=== PATIENT | male | born 1955 | race Caucasian/White ===

== ENCOUNTER 2017-06-25 03:51 | Inpatient (IN) | payer OTHER ==
[~2017-06-25] VITALS: Ht 185.4 cm; Wt 129.8 kg
--- NOTE | ~2017-06-25 | CON ---
[place], [place] REPORT OF CONSULTATION NAME: RIVERA BAPTISTE UNIT #: [id number] ROOM: 403 DOCTOR: MARTIR CELESTE BIRTHDATE: [birth year] DOS: 06/30/2017 HISTORY OF PRESENT ILLNESS: The patient is a 61-year-old male, currently on the 4th floor at [facility], who was brought in on June 25 by EMS after suffering a fall at home due to lower extremity weakness. The patient reported that he has been developing the weakness over 3-4 weeks and symptoms have gotten worse. I met with patient to discuss possible depression. The patient admits to feeling depressed over the last several weeks. He states that the holidays are hard for him as all of his family has . He states he has no friends or family to spend the holidays with and this is very hard for him. He denies any suicidal ideations. He states that he prefers to go to rehab upon discharge so that he is not alone for the holidays. Case management is working to find a place for him. He is unsure of what facility he will go to following his stay at [facility]. PAST MEDICAL HISTORY: Chronic kidney disease, essential hypertension, gout, hyperlipidemia, major depression, obesity, pneumothorax, suicidal ideation, type 2 diabetes, insulin-dependent, vitamin D deficiency. Again, I met with the patient today at length. He stated that he is not suicidal at this time. He is lonely and states that he has had worsening symptoms of depression and feels that going to rehab will help to alleviate those as he will not be alone. He has not been to rehab before, but has visited friends there in the distant past. 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 RECOMMENDATIONS: As the patient is not suicidal, he is agreeable to follow up on an outpatient basis for counseling for his depression and to discuss. He is also willing to discuss coping techniques and other strategies for dealing with his depression when symptoms worsen. He is looking forward to going to rehabilitation. I am in agreement with this plan. Thank you for the consultation. KRISH Hamm CM:CONSTR:REPORT OF CONSULTATION 1127 06/30/17 1710 interface
--- NOTE | ~2017-06-25 | PR ---
[place], [place] PROGRESS NOTE NAME: RIVERA BAPTISTE UNIT #: [id number] ROOM: 403 DOCTOR: KAMERON TAMEZ MD BIRTHDATE: [birth year] DOS: 06/28/2017 SUBJECTIVE: The patient was seen and examined. He is awake and alert, lying flat in the ICU. He denied shortness of breath. He states he is feeling better. Denies fevers or chills. He is urinating more. PHYSICAL EXAMINATION: VITAL SIGNS: Temperature 97.7, pulse 65, respiratory rate 15, blood pressure 140/63. HEENT AND NECK: Shows no JVD. LUNGS: Diminished breath sounds. No wheeze. HEART: Normal S1, S2. No rub, thrill or gallop. ABDOMEN: Soft, nontender. There is no organomegaly. EXTREMITIES: Had trace edema. NEUROLOGIC: Showed no focal findings. LABORATORY DATA: Hemoglobin 10.6, white count of 18.8, platelets of 209. Sodium 137, potassium 4.3, BUN 51, creatinine 2.0, glucose 348, calcium 7.3, albumin of 2.5. IMPRESSION AND PLAN: 1. Acute kidney injury, likely due to prerenal/acute tubular necrosis like picture with questionable interstitial nephritis. The patient's creatinine has improved. Continue to follow laboratory trends. Dose medication for current creatinine clearance. 2. Leukocytosis. The patient is on steroids and on antibiotics. Follow cultures. Adjust antibiotics for current creatinine clearance declined. 3. Anemia. Transfuse as felt needed. 4. Diabetes mellitus. The patient's sugars are high, precipitated by steroids. Keep off metformin for now. Start insulin. 5. Deep venous thrombosis prophylaxis. It appears Lovenox has been discontinued, which I agree with. KAMERON TAMEZ MD CM:PNTRANS 51 KAMERON TAMEZ MD 06/28/171952 interface
--- NOTE | ~2017-06-25 | PR ---
[place], [place] PROGRESS NOTE NAME: RIVERA BAPTISTE UNIT #: [id number] ROOM: [facility] DOCTOR: KAMERON TAMEZ MD BIRTHDATE: [birth year] DOS: 06/27/2017 SUBJECTIVE: The patient was seen and examined. He remains critically ill. He is lying in bed on room air. Denies shortness of breath, fevers, chills or night sweats. PHYSICAL EXAMINATION: VITAL SIGNS: Temperature 98.0, pulse 85, respiratory rate 18, blood pressure 140/70. HEENT: Shows no JVD. LUNGS: Diminished breath sounds. HEART: Normal S1, S2. No rub, thrill or gallop. ABDOMEN: Soft, nontender. There is no organomegaly. EXTREMITIES: With trace edema. SKIN: Showed no rash. NEUROLOGIC: Showed no focal findings. LABORATORY DATA: Hemoglobin 10.8, white count of 30.4, platelets 222. Sodium 138, potassium 4.5, BUN 60, creatinine 2.6, glucose 297, calcium 7.3, phosphorus 2.0. IMPRESSION: 1. Acute kidney injury, likely related to a prerenal/acute tubular necrosis like picture, with apparent drug reaction with questionable interstitial nephritis. As noted, the patient's creatinine is now stable. Continue to follow laboratory trends. 2. Leukocytosis. The patient is on steroids. He also is on antibiotics. Follow cultures. 3. Anemia. Stable H and H. Transfuse as felt needed. 4. Deep venous thrombosis prophylaxis, would discontinue Lovenox in the setting of acute kidney injury. Would use subcutaneous heparin. Continue to avoid using NSAIDs. 5. Diabetes mellitus. Continue to hold metformin. [place], [place] PROGRESS NOTE NAME: RIVERA BAPTISTE UNIT #: [id number] ROOM: [facility] DOCTOR: KAMERON TAMEZ MD BIRTHDATE: [birth year] KAMERON TAMEZ MD CM:PNTRANS [id number] KAMERON TAMEZ MD 06/27/17 232 interface
[~2017-06-25 03:51] MED LIST: ALLOPURINOL100 MG PO; ALLOPURINOL300 MG PO; ALPRAZOLAM0.25 MG PO; AMBIEN10 M1 PO; ASPIRIN81 M1 PO; BRIN20TA PO; CIPROFLOXACIN500 MG PO; CYMBALTA60 MG PO; DOXAZOSIN4 MG PO; DULOXETINE HCL DR 60; EXFORGE 10 MG-31 TA1 PO; Ecotrin325 MG PO; FLEXERIL10 MG PO; FLOMAX0.4 MG PO; FUROSEMIDE20 MG PO; GABAPENTIN300 M1 PO; GABAPENTIN300 MG PO; GAVILAX17 GM/Dose PO; GRALISE300 M1 PO; HUMULIN R100 U/ML SC; INDOMETHACIN50 MG PO; INVEGA6 MG PO; LAMICTAL100 MG PO; LANTUS100 U/ML SC; LATU20TA PO; LEVEMIR100 U/ML SC; LOSARTAN POTAS100 M1 PO; METFORMIN1000 MG PO; MOTRIN800 MG PO; Motrin,Rufen800 MG PO; NORVASC10 MG PO; NOVOLOG100 U/ML; RANITIDINE150 MG PO; SERTRALINE HCL100 MG; SIMVASTATIN20 MG PO; TESSALON PERLE200 MG PO; TOPROL XL25 MG PO; TRAMADOL HCL50 MG PO; ULTRAM50 MG PO; VENLAFAXINE75 M1 PO; VENTOLIN H0.09 MG/AC IH; VICODIN 5/500 505 MG PO; VITAMIN C1000 M2 PO; VITAMIN D2000 IU PO; VITAMIN D34000 UNIT PO; VITAMIN D50000 I3 PO; XANAX0.5 MG PO
[2017-06-25 03:53] VITALS: BP 128/60
[2017-06-25 04:27] LABS: BASO % 0.1 % (0.0-1.0); EOS # 0.5 10*3/uL (0.0-0.4); EOS % 3.3 % (1.0-4.0); HEMATOCRIT 43.5 % (42.0-52.0); HEMOGLOBIN 14.4 g/dl (14.0-18.0); LYMPH # 1.3 10*3/uL (1.3-4.4); LYMPH % 8.5 % (27.0-41.0); MEAN CORPUSCULAR HGB 30.1 pg (27.0-31.0); MEAN CORPUSCULAR HGB CONC 33.1 g/dl (33.0-37.0); MEAN PLATELET VOLUME 10.8 fl (9.6-12.3); MONO # 0.5 10*3/uL (0.1-1.0); MONO % 3.7 % (3.0-9.0); NEUT # 12.4 10*3/uL (2.3-7.9); NEUT % 84.1 % (47.0-73.0); PLATELET COUNT AUTOMATED 267 10*3/uL (130-400); RED BLOOD COUNT 4.78 10*6/uL (4.50-5.90); RED CELL DISTRI WIDTH 13.9 % (0-14.5); WHITE BLOOD COUNT 14.7 10*3/uL (4.8-10.8)
[2017-06-25 04:47] LABS: ALBUMIN 3.7 gm/dl (3.1-4.5); ALKALINE PHOSPHATASE 123 U/L (45-117); BUN 41 mg/dl (7-24); CHLORIDE 104 mmol/L (98-107); CREATININE 2.18 mg/dL (0.70-1.30); POTASSIUM 4.5 mmol/L (3.5-5.1); SGOT/AST 17 IU/L (3-35); SGPT/ALT 25 U/L (12-78); SODIUM 136 mmol/L (136-145); TOTAL PROTEIN 8.1 gm/dL (6.4-8.2)
[2017-06-25 04:48] LABS: TROPONIN I < 0.015 ng/ml (<0.045)
--- NOTE | 2017-06-25 04:59 | NUR ---
PATIENT REFUSES IV AND A STRAIGHT CATH.
--- NOTE | 2017-06-25 05:17 | NUR ---
PT BEING DIFFICULT WITH NURSING STAFF AND ED PHYSICIAN. PT REFUSING ALL INTERVENTIONS SUCH IV START, AND STRAIGHT CATHETER FOR URINE SPECIMEN.
--- NOTE | 2017-06-25 07:05 | NUR ---
PATIENT TAKEN TO FLOOR BY AIDA PEREZ AND APARNA PEREZ.
[2017-06-25 07:08] VITALS: BP 125/56
[2017-06-25 07:17] LABS: THYROID STIM HORMONE (HS) 0.737 uIU/ml (0.358-4.75)
--- NOTE | 2017-06-25 07:22 | NUR ---
A 61, admitted to 5E, under the services of EPIFANIO Dumont DO with a diagnosis of ARF CELLULITIS SEVERE SEPSIS, LACTIC ACIDOSIS. Chief complaint is FALL AND INCREASED GENERALIZED WEAKNESS. Patient arrived via ambulance from ER. Monitor applied. Initial assessment completed. Vital signs taken and recorded. EPIFANIO DUMONT DO notified of admission to the unit. Orders received. See assessment for past medical history, medications and allergies. Patient and/or family oriented to unit. [facility] visitation policy reviewed. Clothing/patient valuable form completed. DAVID MCKENZIE
--- NOTE | 2017-06-25 07:45 | NUR ---
IN TO SEE PT. RED RASH NOTED ALL OVER PTS CHEST, ABDOMEN, AND BACK. PT C/O OF CONSTANT ITCHING, BEING UNCOMFORTABLE, AND RESTLESS.STAT ORDER OF BENDARYL RECEIVED FOR ITCHING CAUSED BY RASH. SEE MAR. PT ON 2L OXYGEN VIA NC, 99% O2 SAT. 0.9NS BOLUS #1 GOING WITH #2 HANGING, NO PROBLEMS WITH IV PER PT. IV SITE ASYMPTOMATIC. LUNGS DIMINISHED, CLEAR. NON-PRODUCTIVE COUGH PRESENT, DRY. NO EDEMA NOTED. PT HAS A GREAT AMOUNT OF GENERALIZED WEAKNESS AND REQUIRES MUCH HELP WHEN SITTING UP. UA REFLEX ORDERED. PT UNABLE TO URINATE IN SPECIMEN CUP. STRAIGHT CATH ATTEMPTED PER ORDER. PT REFUSED FURTHER ATTEMPTS AFTER 1X ATTEMPT FAILED. DR. BARILLAS NOTIFIED.
--- NOTE | 2017-06-25 08:23 | NUR ---
IN TO SEE PT. PT WILL BE TRANSFERRED TO ICU PER ORDERS.
--- NOTE | 2017-06-25 08:45 | NUR ---
PT TRANSFERRED TO ICU WITHOUT INCIDENT. REPORT GIVEN TO ROOSEVELT CHOI RN.
[2017-06-25 09:06] LABS: ABG HCO3 16.2 mmol/l (22-26); ABG O2 SATURATION 98.4 % (95-97); ARTERIAL BLOOD GAS PCO2 25.3 mmHg (35-45); ARTERIAL BLOOD GAS PH 7.423 (7.35-7.45)
--- NOTE | 2017-06-25 09:06 | NUR ---
RECIEVED FROM 5E, DR BARILLAS HERE TO PLACE CENTRAL LINE, IV ATIVAN GIVEN FOR AGITATION PRIOR TO CENTRAL INSERTION, #16 CERON PLACED, PT UNCOOPERATIVE AND RESISTING NURSING CARE,REPORT RECIEVED, ASC, FLU SWAB, URINES SENT
[2017-06-25 09:07] LABS: ABG BASE EXCESS -6.3 mmol/L (-2.0-2.0)
[2017-06-25 09:26] LABS: BILIRUBIN NEGATIVE (NEGATIVE); BLOOD 2+ (NEGATIVE); CLARITY CLOUDY (CLEAR); COLOR YELLOW (YELLOW); GLUCOSE NEGATIVE (NEGATIVE); KETONE TRACE (NEGATIVE); LEUKO ESTERASE NEGATIVE (NEGATIVE); NITRITE NEGATIVE (NEGATIVE); PH 5.5 (5.0-9.0); UROBILINOGEN 0.2 E.U./dl (0.2-1.0)
[2017-06-25 09:50] LABS: BACTERIA 3+
[2017-06-25 09:52] LABS: COARSE GRANULAR CAST 20-30; RBC 21-30 rbc/hpf (0-2)
--- NOTE | 2017-06-25 11:00 | NUR ---
DR NARGIS VILLAFUERTE ON PT TEMP OF 104.4 RECTALLY, TYLENOL SUPP ORDERED AND GIVEN, HYPOTHERMIA BLANKET PLACED, ALSO UPDATED ON PTS LETHARGY AND INABILITY TO TAKE PO MEDS OF NOW
[2017-06-25 12:00] VITALS: BP 154/67
[2017-06-25] MEDS ORDERED: MOBIC15 MG PO (13:03)
[2017-06-25] MEDS ORDERED: METFORMIN ER500 MG PO (13:04)
[2017-06-25] MEDS ORDERED: AMARYL4 MG PO (13:04)
[2017-06-25] MEDS ORDERED: Motrin,Rufen800 MG PO (13:05)
[2017-06-25] MEDS ORDERED: CRESTOR20 M1 PO (13:05)
[2017-06-25] MEDS ORDERED: TRULICITY0.75 MG/0. SC (13:06)
--- NOTE | 2017-06-25 13:35 | NUR ---
MEDS RECONCILED, DR BARILLAS NOTIFIED I PERSONALLY SPOKE WITH THE PHARMACY AT [facility]
[2017-06-25 13:51] LABS: VITAMIN D, 25-HYDROXY 19.4 ng/mL (30-100)
[2017-06-25 15:10] LABS: HEMATOCRIT 37.5 % (42.0-52.0); HEMOGLOBIN 12.5 g/dl (14.0-18.0); MEAN CELL VOLUME 90.4 fl (80.0-94.0); MEAN CORPUSCULAR HGB 30.1 pg (27.0-31.0); MEAN CORPUSCULAR HGB CONC 33.3 g/dl (33.0-37.0); MEAN PLATELET VOLUME 11.3 fl (9.6-12.3); PLATELET COUNT AUTOMATED 241 10*3/uL (130-400); RED BLOOD COUNT 4.15 10*6/uL (4.50-5.90); RED CELL DISTRI WIDTH 14.1 % (0-14.5); WHITE BLOOD COUNT 26.8 10*3/uL (4.8-10.8)
[2017-06-25 15:20] LABS: CREATININE 2.26 mg/dL (0.70-1.30); PHOSPHOROUS 1.8 mg/dL (2.5-4.9); POTASSIUM 4.1 mmol/L (3.5-5.1)
--- NOTE | 2017-06-25 15:24 | NUR ---
RECTAL TEMP NOW 99.
[2017-06-25 15:51] LABS: PLATELET SUFFICIENCY NORMAL (NORMAL); TOTAL CELLS COUNTED 100 #CELLS
[2017-06-25 16:00] VITALS: BP 103/55
[2017-06-25 20:00] VITALS: BP 134/94
--- NOTE | 2017-06-25 20:09 | NUR ---
1946 RESTING IN BED ON LEFT SIDE. HOB ELEVATED. SIDE RAILS UP X'S 2.CALL LIGHT IN REACH. HEP LOCK INTACT DONOVAN. RIJ MLC INTACT. CERON PATENT AND DRAINING CLEAR YELLOW URINE. NO C/O'S PAIN OR DISCOMFORT VOICED AT PRESENT. NO DISTRESS NOTED.
--- NOTE | 2017-06-25 21:39 | NUR ---
REFUSED BATH AT PRESENT. REFUSED COVERAGE FOR BEDSIDE BLOOD SUGAR OF 240. APPETITE IS POOR.TAKING ICE CHIPS PO. AFEBRILE AT PRESENT TIME. ALERT. TALKING ON CELL PHONE.
[2017-06-26] VITALS: BP 133/89
--- NOTE | 2017-06-26 00:12 | NUR ---
TYLENOL 2 PO GIVEN FOR C/O'S GENERALIZED DISCOMFORT. RESTING IN BED WATCHING TV. IV FLUIDS CONT. RIJ MLC INTACT. CERON PATENT. NO DISTRESS NOTED.
--- NOTE | 2017-06-26 01:07 | NUR ---
EARLIER TYLENOL EFFECTIVE. RESTING IN BED WITH EYES CLOSED. APPEARS TO BE SLEEPING.
[2017-06-26 04:00] VITALS: BP 98/60
--- NOTE | 2017-06-26 04:03 | NUR ---
MOANS FREQUENTLY AND TALKS TO SELF. EXPRESSING FEELINGS OF SADNESS OVER THE UPCOMING HOLIDAYS AND BEING ALONE. REASSURANCE GIVEN.
--- NOTE | 2017-06-26 04:18 | NUR ---
PT REQUESTING BENADRYL FOR "ITCHING". TALKS OUT LOUD TO HIMSELF.DR. DAVIS CALLED.WILL PUT IN AN ORDER FOR BENADRYL.
--- NOTE | 2017-06-26 04:47 | NUR ---
BENADRYL PO GIVEN PER ORDER FOR ITCHING.WILL MONITOR.
--- NOTE | 2017-06-26 05:46 | NUR ---
UP TO RECLINER CHAIR AT BEDSIDE WITH 2 ASSISTS AND WALKER.PT IS WEAK. CALL LIGHT IN REACH. IV SITE [facility]'ED.
[2017-06-26 05:59] LABS: ALBUMIN 2.5 gm/dl (3.1-4.5); POTASSIUM 4.3 mmol/L (3.5-5.1)
[2017-06-26 06:11] LABS: HEMOGLOBIN 11.3 g/dl (14.0-18.0); MEAN CELL VOLUME 90.9 fl (80.0-94.0); MEAN CORPUSCULAR HGB 30.2 pg (27.0-31.0); MEAN CORPUSCULAR HGB CONC 33.2 g/dl (33.0-37.0); MEAN PLATELET VOLUME 11.7 fl (9.6-12.3); PLATELET COUNT AUTOMATED 229 10*3/uL (130-400); RED BLOOD COUNT 3.74 10*6/uL (4.50-5.90); RED CELL DISTRI WIDTH 14.2 % (0-14.5)
[2017-06-26 06:12] LABS: CREATININE 2.5 mg/dL (0.70-1.30); PHOSPHOROUS 2.2 mg/dL (2.5-4.9); THYROID STIM HORMONE (HS) 0.389 uIU/ml (0.358-4.75); TOTAL PROTEIN 5.9 gm/dL (6.4-8.2)
--- NOTE | 2017-06-26 06:22 | NUR ---
PT REQUESTING CELL PHONE INNERSOLE MAKER IN PANTS POCKET. UNABLE TO FIND INNERSOLE MAKER PER 2 RN'S AND PT. ALSO ASKING WHERE HIS WALLET IS. NO WALLET LISTED ON CLOTHING LIST. PT HAS BELONGINGS IN LOCK BOX. NO WALLET OR CELLPHONE INNERSOLE MAKER LISTED. ALSO STATES THAT HE HAS A DEBIT CARD IN HIS WALLET THAT WAS JUST "LOADED" WITH HIS SOCIAL SECURITY CHECK. RIP SAW OPERATOR, JARED GARCIA HERE AND MADE AWARE. WILL CHECK LOCK BOX IN NURSING OFFICE. PT REMAINS SITTING IN RECLINER CHAIR AT BEDSIDE WATCHING TV. IV FLUIDS CONT. CERON PATENT. CONDITION GUARDED. REMAINS AFEBRILE. SL RELIEF OBTAINED FROM EARLIER BENADRYL.
[2017-06-26 08:00] VITALS: BP 148/71
[2017-06-26 08:07] LABS: PLATELET SUFFICIENCY NORMAL (NORMAL); TOTAL CELLS COUNTED 100 #CELLS
--- NOTE | 2017-06-26 08:21 | NUR ---
UP IN RECLINER,KERRIE,DOESNT WANT BOTHERED,DR BARILLAS HERE TO SEE PT
--- NOTE | 2017-06-26 08:45 | NUR ---
DR WAITE NOTIFIED OF CONSULT
[2017-06-26 12:00] VITALS: BP 109/68; BP 144/65; BP 146/67
--- NOTE | 2017-06-26 13:01 | NUR ---
TYLENOL FOR LOW GRADE TEMP 99.9
--- NOTE | 2017-06-26 14:22 | NUR ---
Occupational Therapy evaluation completed in ICCU with full eval to follow. Precautions include fall risk, ICCU, IV, parkinson catheter,high complexity level 07192, obesity. Recommend OT per POC and SNF to enable safe return home at [facility]. Thank you for this referral. Anna Marie Ramesh OTR/l
--- NOTE | 2017-06-26 14:58 | NUR ---
PHYSICAL THERAPY PAtient evaluated in ICCU, full evaluation to follow. Continue with PT as per plan of care with fall. mod (A) x 2 and acute debility precautions. May require SNF for impaired mobility. PAtient is moderate complexity via chart review, tests and evaluation: 32234. Thank you for this referral. Cristin Hanley,PT
--- NOTE | 2017-06-26 15:40 | NUR ---
SW SPOKE WITH PT ABOUT DISCHARGE PLANS. PT WOULD LIKE TO GO TO SNF AT THE REHAB SUITES.
--- NOTE | 2017-06-26 15:50 | NUR ---
DELLA SENT REFERRAL TO [facility]. WILL NEED PRE-CERT FROM [facility]. PRE-CERT TAKES AT LEAST 4 DAYS.
[2017-06-26 16:00] VITALS: BP 134/75
[2017-06-26 20:00] VITALS: BP 129/62
[2017-06-27] VITALS: BP 132/61
--- NOTE | 2017-06-27 01:06 | NUR ---
PATIENT IS RESTING COMFORTABLY IN THE BEDSIDE CHAIR PATIENT WAS COOPERATIVE UPON ASSESSMENT. PATIENT DENIES ANY PAIN OR DISCOMFORT AT THIS TIME. PATIENT HAS A RASH ON THE CHEST BUT REFUSES ANY OINTMENTS. PATIENT DENIES ANY N/V. CALL LIGHT WITHIN REACH, SEE SHIFT ASSESSMENT.
[2017-06-27 04:00] VITALS: BP 140/67
[2017-06-27 04:49] LABS: HEMATOCRIT 31.7 % (42.0-52.0); HEMOGLOBIN 10.8 g/dl (14.0-18.0); MEAN CELL VOLUME 89.8 fl (80.0-94.0); MEAN CORPUSCULAR HGB 30.6 pg (27.0-31.0); MEAN CORPUSCULAR HGB CONC 34.1 g/dl (33.0-37.0); PLATELET COUNT AUTOMATED 222 10*3/uL (130-400); RED BLOOD COUNT 3.53 10*6/uL (4.50-5.90); RED CELL DISTRI WIDTH 14.6 % (0-14.5); WHITE BLOOD COUNT 30.4 10*3/uL (4.8-10.8)
[2017-06-27 05:12] LABS: BURR CELLS FEW; PLATELET SUFFICIENCY NORMAL (NORMAL); TOTAL CELLS COUNTED 100 #CELLS
[2017-06-27 05:13] LABS: CREATININE 2.6 mg/dL (0.70-1.30); POTASSIUM 4.5 mmol/L (3.5-5.1)
--- NOTE | 2017-06-27 06:52 | NUR ---
PATIENT HAS BEEN RESTING IN THE BEDSIDE CHAIR PATIENT HAS BEEN COMPLAINING OR FEELING WEAK AND HAS HAD TROUBLE AMBULATING TO THE [facility]. PATIENT IS A&OX3, DENIES ANY PAIN OR SOB. PATIENT IS CONCERNED ABOUT GOING HOME ON DISCHARGE, SS CONSULTED. NO FURTHER REQUESTS AT THIS TIME, CALL LIGHT WITHIN REACH. SEE ASSESSMENT.
[2017-06-27 08:00] VITALS: BP 140/72
[2017-06-27 12:00] VITALS: BP 140/70
--- NOTE | 2017-06-27 14:51 | NUR ---
MEDICATED WITH BENADRYL FOR COMPLAINTS OF ITCHING ON BACK AND ALL OVER.
[2017-06-27 16:00] VITALS: BP 150/62
--- NOTE | 2017-06-27 20:01 | NUR ---
PT DOZING. AWAKENS EASILY. SINCE PT HAS VOICED DISLIKE OF BEING BOTHERED ALL THE TIME. I WILL BATCH VS/ASSESSMENT/BED GLUCOSE/MEDICATION PASS AT ONE TIME TO ALLOW FOR MORE REST FOR PT.
[2017-06-27 22:22] VITALS: BP 149/71
--- NOTE | 2017-06-27 23:18 | NUR ---
BENADRYL GIVEN AT 2120 PER PT REQUEST EFFECTIVE...PT SLEEPING, NOT COMPLAINING OF ITCHING.
[2017-06-28 03:00] VITALS: BP 130/60
--- NOTE | 2017-06-28 04:12 | NUR ---
ASSISTED UP TO RECLINER CHAIR.
--- NOTE | 2017-06-28 06:56 | NUR ---
BENADRYL GIVEN FOR COMPLAINTS OF ITCHING.
--- NOTE | 2017-06-28 07:33 | NUR ---
24 HR chart check completed.
[2017-06-28 08:00] VITALS: BP 140/63
[2017-06-28 09:13] LABS: BASO % 0.2 % (0.0-1.0); EOS # 0.7 10*3/uL (0.0-0.4); EOS % 3.5 % (1.0-4.0); HEMOGLOBIN 10.6 g/dl (14.0-18.0); LYMPH # 1.2 10*3/uL (1.3-4.4); LYMPH % 6.5 % (27.0-41.0); MEAN CELL VOLUME 90.4 fl (80.0-94.0); MEAN CORPUSCULAR HGB 30.9 pg (27.0-31.0); MEAN CORPUSCULAR HGB CONC 34.2 g/dl (33.0-37.0); MONO # 0.3 10*3/uL (0.1-1.0); MONO % 1.8 % (3.0-9.0); NEUT # 16.4 10*3/uL (2.3-7.9); NEUT % 86.9 % (47.0-73.0); PLATELET COUNT AUTOMATED 209 10*3/uL (130-400); RED BLOOD COUNT 3.43 10*6/uL (4.50-5.90); RED CELL DISTRI WIDTH 14.6 % (0-14.5); WHITE BLOOD COUNT 18.8 10*3/uL (4.8-10.8)
[2017-06-28 09:27] LABS: ALBUMIN 2.5 gm/dl (3.1-4.5); CREATININE 2.01 mg/dL (0.70-1.30); POTASSIUM 4.3 mmol/L (3.5-5.1); TOTAL PROTEIN 6.3 gm/dL (6.4-8.2)
[2017-06-28 12:00] VITALS: BP 148/58
[2017-06-28 16:00] VITALS: BP 163/72
[2017-06-28 20:00] VITALS: BP 102/60
--- NOTE | 2017-06-28 20:19 | NUR ---
PT REQUESTED MEDICATION FOR ITCHING. PT STATES HE "ITCHES ALL OVER." BENADRYL GIVEN.
--- NOTE | 2017-06-28 20:29 | NUR ---
ASSUMED CARE OF PT. PT IN CHAIR, WATCHING TV WITH LIGHTS OFF. LUNGS DIMINISHED WITH TRACE EDEMA BLE NOTED. CERON INTACT WITH CLEAR,YELLOW URINE FLOWING. NO COMPLAINTS AT THIS TIME. NO WOUNDS NOTED. IJ IN TACT, DRESSING INTACT. WILL CONTINUE TO MONITOR.
[2017-06-29] VITALS: BP 146/64
--- NOTE | 2017-06-29 01:00 | NUR ---
PATIENT VERY RESTLESS AND UNABLE TO SLEEP. HELPED PATIENT TRANSFER INTO RECLINER, TRIED TO CALM PATIENT. PATIENT GIVEN ICE CREAM. PATIENT GIVEN RESTORIL FOR SLEEPLESSNESS.
--- NOTE | 2017-06-29 02:00 | NUR ---
PATIENT SITTING IN RECLINER, RESTLESS. COMPLAINS OF ITCHING. RESTORIL INEFFECTIVE.
--- NOTE | 2017-06-29 02:15 | NUR ---
PATIENT GIVEN BENADRYL FOR ITCHING. PATIENT VERY ANXIOUS AND STATES CAN NOT STAND THE ITCHING ANYMORE.
[2017-06-29 07:25] LABS: HEMATOCRIT 31.4 % (42.0-52.0); HEMOGLOBIN 10.7 g/dl (14.0-18.0); MEAN CELL VOLUME 90.2 fl (80.0-94.0); MEAN CORPUSCULAR HGB 30.7 pg (27.0-31.0); MEAN CORPUSCULAR HGB CONC 34.1 g/dl (33.0-37.0); MEAN PLATELET VOLUME 11.1 fl (9.6-12.3); PLATELET COUNT AUTOMATED 224 10*3/uL (130-400); RED BLOOD COUNT 3.48 10*6/uL (4.50-5.90); RED CELL DISTRI WIDTH 14.8 % (0-14.5); WHITE BLOOD COUNT 16.8 10*3/uL (4.8-10.8)
[2017-06-29 07:46] LABS: CREATININE 1.73 mg/dL (0.70-1.30); POTASSIUM 4.4 mmol/L (3.5-5.1)
[2017-06-29 08:00] VITALS: BP 148/68
[2017-06-29 08:01] LABS: BURR CELLS FEW; PLATELET SUFFICIENCY NORMAL (NORMAL); TOTAL CELLS COUNTED 100 #CELLS
--- NOTE | 2017-06-29 08:16 | NUR ---
MEDICATED WITH BENADRYL FOR PT'S COMPLAINTS OF ITCHING. WILL MONITOR FOR EFFECTIVENESS.
--- NOTE | 2017-06-29 09:00 | NUR ---
social worker clinical is working on patient going to SNF, patient will need an insurance precert
--- NOTE | 2017-06-29 09:30 | NUR ---
PT STATED BENADRYL WAS EFFECTIVE FOR ITCHING. RESTING SOMEWHAT MORE COMFORTABLE.
--- NOTE | 2017-06-29 10:03 | NUR ---
PATIENT VERBALIZED THAT HE WAS TOO TIRED RIGHT NOW TO COMPLETE OT. WILL TRY BACK AT A LATER DATE. ELIZABETH PUGA
--- NOTE | 2017-06-29 10:18 | NUR ---
CERON CATHETER DISCONTINUED AT THIS TIME. PT TOLERATED WELL.
--- NOTE | 2017-06-29 10:46 | NUR ---
PATIENT SEEN FOR 15 MINUTES OT THIS DATE 1:1. PATIENT IDENTIFIED BY NAME AND DATE OF . PATIENT WILLING TO COMPLETE ACTIVITY TO TOLERANCE AFTER EDUCATION THIS DATE. PATIENT SEATED RECLINER WITH IV THIS DATE. PATIENT WILLING TO COMPLETE SEATED ACTIVTY. COMPLETED BUE AROM ALL PLANES 8 EXERCISES X 10 REPS WITH MOD RESt BREAKS AND VERBAL CUES TECHNIQUE/FORM. PATIENT DEMONSTRATED ROM LIMITATIONS RUE THIS DATE. PATIENT DEMONSTRATED P+/f - activity tolerance overall this date COMPLETED ENERGY CONSERVATION EDUCATION WITH FAIR UNDERSTANDING DEMONSTRATED. ELIZABETH PUGA
--- NOTE | 2017-06-29 10:51 | NUR ---
PHYSICAL THERAPY Patient seen this am 1:1 for therapy visit and patient was semi reclined in bedside chair upon therapist arrival. Patient voiced global c/o of mild itching, stating it has not been as bad since taking meds the past 3 days. Patient transters sit to stand CGA stating he wished they would take out this "bleeping" catheter. Patient ambulates ASSOCIATE DOCTOR/CGA, 75'x 1, demonstrating decreased stride and increased fatigue > 50 feet, requiring very brief standing rest stop before continueing back to room. Patient returned to bedside chair with c/o 3/10 B LE muscle pain and needed v/c for both increased stride and B heel strike. Patient remained in bedside chair with call light, telephone and tray table by his side. Will continue per POC as tolerated to improve standing activity tolerance, balance and functional mobility. Kennedy Jacinto, QUARTZ ORIENTATOR
[2017-06-29 11:56] VITALS: BP 159/64
--- NOTE | 2017-06-29 12:47 | NUR ---
DELLA FAXED UPDATED THERAPY NOTES TO [facility] FOR PRE-CERT.
--- NOTE | 2017-06-29 13:41 | NUR ---
IN TO ESTABLISH NEW IV ACCESS ON PT, DR SOLANO STATED IF WE COULD ESTABLISH IV ACCESS WE COULD REMOVE THE MULTILUMEN CATHETER WHICH PT HAS BEEN COMPLAINING ABOUT. PT STATES HE DOESN'T WANT ME TO TRY AT THIS TIME, HE IS TOO TIRED.
[2017-06-29] MEDS ORDERED: LISINOPRIL-HCT1 EACH PO (14:19)
--- NOTE | 2017-06-29 15:33 | NUR ---
SW RECEIVED NOTICE THAT [facility] DID NOT HAVE A BED FOR PT.
--- NOTE | 2017-06-29 15:34 | NUR ---
SW INFORMED PT THAT [facility] DID NOT HAVVE A BED . PT STATED THAT HE DID NOT CARE WHERE HE WENT. SW OFFERED CHOICES. PT SAID TO START WITH [facility] THEN [facility].
--- NOTE | 2017-06-29 15:35 | NUR ---
DELLA FAXED REFERRALTO [facility]. DELLA NOTIFED BHARATH OF REFERRAL.
[2017-06-29 16:00] VITALS: BP 145/55
[2017-06-29 20:00] VITALS: BP 153/61
[2017-06-30] VITALS: BP 166/92; BP 197/85
--- NOTE | 2017-06-30 04:26 | NUR ---
SPOKE WITH DR. MOIRA JERRY REGARDING BP. ORDERS RECIEVED
--- NOTE | 2017-06-30 04:55 | NUR ---
PATIENT REFUSED HYDRALAZINE AT THIS TIME
[2017-06-30 07:44] LABS: ALBUMIN 2.7 gm/dl (3.1-4.5); CREATININE 1.68 mg/dL (0.70-1.30); PHOSPHOROUS 3.4 mg/dL (2.5-4.9); POTASSIUM 4.5 mmol/L (3.5-5.1)
[2017-06-30 08:00] VITALS: BP 152/57
--- NOTE | 2017-06-30 09:00 | NUR ---
case management visits with patient, patient will be going to [facility] as soon as insurance precert has been obtained
--- NOTE | 2017-06-30 09:39 | NUR ---
PT VOICING FEELING OF DESPAIR STATING THE HE HAS NO ONE AND DOESNT CARE ABOUT LIFE OR GETTING BETTER ANY MORE. FLAT AFFECT. DR SOLANO MADE AWARE AND DR IBARRA CONSULT ORDER FOR DEPRESSION.
--- NOTE | 2017-06-30 10:08 | NUR ---
DR Margarita IBARRA MADE AWARE OF NEW CONSULT. STATED THAT GUEVARA WILL BE DOWN TO SEE PT.
--- NOTE | 2017-06-30 10:11 | NUR ---
PATIENT SEEN 1:1 OT 15 MINUTES THIS DATE. PATIENT IDENTIFIED BY NAME AND DATE OF . PATIENT VERBALIZED THAT HE DOESN'T WANT TO BE HERE AND EXHIBITED EXPLICIT LANGUAGE. PATIENT REQUIRED EDUCATION TO COMPLETE THERAPY THIS DATE SECONDARY RELUCTANT TO COMPLETE. PATIENT WILLING TO COMPLETE THERAPY TO TOLERANCE THIS DATE. PATIENT COMPLETED LB DRESSING TASK DONNING NON SLIP SOCKS MIN A WITH VERBAL CUES TECHNIQUE AND PATIENT EXHIBITING EXPLICIT LANGUAGE WHILE COMPLETING TASK . PATIENT COMPLETED SIT TO STAND FROM RECLINER CGA PATIENT DEMONSTRATES DECREASE SAFETY AWARENESS DEMONSTRATED BY PUSHING FWW AWAY AND VERBALIZING "I DON'T NEED THAT". PATIENT EDUCATED IMPORTANCE USE FWW FOR FALL PREVENTION. PATIENT COMPLETED STANDING TOLERANCE ACTIVITY CGA WITH FAIR BALANCE 30 SECONDS X 1 AND 1 MINUTE X SECOND STAND WITH PATIENT VERBALIZING FEELING TIRED AND NEED TO SIT FOR SEATED REST BREAK. PATIENT INSTRUCTED PURSE LIP BREATHING THIS FOR ENERGY CONSERVATION. ELIZABETH PUGA
--- NOTE | 2017-06-30 10:42 | NUR ---
PHYSICAL THERAPY Cornel seen this AM 1:1 for his therapy treatment. Pt was up in his bedside chair said he would go but just wants to nothing to live for. I let his nurse know this. Transfer sit/stand and standing balance MIN A X 1. Then gait 20' into pt's bathroom with MIN MANAGER PERSONNEL SELECTION X 1, with cueing for safety and Cornel said that he was ok. Followed by another 20' X 1, back to Pt's chair and was a little SOB with this, and no LOB just very up-set with himself, Pt with call light, phone, breakfast in at this time. DREAD GARIBAY TRACTOR ENGINE ASSEMBLER.
--- NOTE | 2017-06-30 11:14 | NUR ---
DYNAMOMETER TESTER GUEVARA WHO WORKS WITH DR Margarita IBARRA IN TO SPEAK WITH PT.
--- NOTE | 2017-06-30 11:17 | NUR ---
BHARATH AT [facility] WAS INQUIRING IF PT WOULD COME TO THEM ON IVS. SW NOT SURE. SENT UPDATED MED LIST TO BHARATH.
[2017-06-30 12:00] VITALS: BP 166/60
--- NOTE | 2017-06-30 12:19 | NUR ---
Angelina, nurse director of hospitalists stated patient will not be going to [facility] on IV ATB. Notified Stephanie at [facility].
[2017-06-30 16:00] VITALS: BP 172/56
[2017-06-30 20:00] VITALS: BP 168/59
[2017-07-01] VITALS: BP 164/52
--- NOTE | 2017-07-01 07:45 | NUR ---
Patient has been referred to [facility] for short term rehab, waiting on precert.
[2017-07-01 07:56] LABS: HEMATOCRIT 34.7 % (42.0-52.0); HEMOGLOBIN 11.9 g/dl (14.0-18.0); MEAN CELL VOLUME 90.4 fl (80.0-94.0); MEAN CORPUSCULAR HGB CONC 34.3 g/dl (33.0-37.0); MEAN PLATELET VOLUME 10.6 fl (9.6-12.3); PLATELET COUNT AUTOMATED 285 10*3/uL (130-400); RED BLOOD COUNT 3.84 10*6/uL (4.50-5.90); RED CELL DISTRI WIDTH 14.3 % (0-14.5); WHITE BLOOD COUNT 20.6 10*3/uL (4.8-10.8)
[2017-07-01 08:00] VITALS: BP 160/85
[2017-07-01 08:16] LABS: BASOPHILS 1 % (0-1); PLATELET SUFFICIENCY NORMAL (NORMAL); TOTAL CELLS COUNTED 100 #CELLS
[2017-07-01 08:21] LABS: POTASSIUM 3.9 mmol/L (3.5-5.1)
[2017-07-01 08:27] LABS: ALBUMIN 2.6 gm/dl (3.1-4.5); CREATININE 1.45 mg/dL (0.70-1.30); PHOSPHOROUS 3.2 mg/dL (2.5-4.9)
--- NOTE | 2017-07-01 08:31 | NUR ---
PHYSICAL THERAPY Cornel seen this AM 1:1 for his therapy gait and just very up-set with just life. Transfer sit/stand and standing balance MIN A X 1. Then gait total 65' X 2, one sitting rest with MOD INCIDENT RESPONSE CONSULTANT X 1, verbal cueing for gait safety, no LOB this gait. Cornel in and out on his bathroom then up in his bedside chair, call light, breakfast coming. I feel bad for him. DREAD GARIBAY AIR INTERCEPT CONTROLLER SUPERVISOR.
--- NOTE | 2017-07-01 10:01 | NUR ---
Received authorization for patient to go to [facility], can go when medically stable for discharge.
--- NOTE | 2017-07-01 10:40 | NUR ---
[facility], but they are waiting [facility] a [facility] to [facility]. Instructed [facility] to call nursing floor when they are ready to take this patient.
--- NOTE | 2017-07-01 11:16 | NUR ---
[facility] stated patient can be set up for 2pm or later.
--- NOTE | 2017-07-01 11:25 | NUR ---
SW NOTIFIED [facility] - HOSPITALIST OFFICE THAT [facility] WOULD BE READY FOR PT AFTER 2PM.
--- NOTE | 2017-07-01 11:26 | NUR ---
PHYSICAL THERAPY CO-SIGN I approve of the Phyical Therapy notes written above. MATEUS ZUNIGA PT
--- NOTE | 2017-07-01 11:26 | NUR ---
SW INQUIRED IF [facility] WOULD TAKE PT. [facility] CANNOT DUE TO [place]. SW ARRANGED TRANSPORTATION WITH [facility] TO TRANSFER PT AT 2PM.
[2017-07-01] MEDS ORDERED: LISINOPRIL20 MG PO (11:35)
[2017-07-01] MEDS ORDERED: HYDR25T PO (11:35)
[2017-07-01 12:00] VITALS: BP 162/76
--- NOTE | 2017-07-01 12:26 | NUR ---
MULTILUMEN IJ CATH REMOVED AT THIS TIME, TIP INTACT. PT TOLERATED WELL. STERILE DRESSING APPLIED AND PRESSURE APPLIED FOR 5 MINUTES.
--- NOTE | 2017-07-01 13:13 | NUR ---
NURSE TO NURSE REPORT GIVEN TO CINDY AT [facility].
--- NOTE | 2017-07-01 15:31 | NUR ---
Discharge instructions reviewed with patient/family. Patient receptive and verbalizes understanding. Follow-up care arranged. Written instructions given to patient/family. IV site removed. Pt transported via [facility]. MAULIK BO
--- NOTE | 2017-07-01 15:56 | NUR ---
OCCUPATIONAL THERAPY CO-SIGN I approve of the Occupational Therapy notes written above. DAVID SAEZ OTR/Jaey
== END 2017-07-01 15:31 | disposition other institution (70) | DRG 871 ==
LOC: ED 03:51 → EDHOLD 06:27 → ICCU 06:27 → 5E 06:27 → 4E 06:27 → 5E 06:46 → ICCU 08:17 → 4E 06-28 17:08
PROVIDERS: Hospitalist; Internal Medicine; Internal Medicine Nephrology; Student in an Organized Health Care Education/Training Program; ADMIT Internal Medicine
PROC: 02HV33Z Insertion of Infusion Device into Superior Vena Cava, Percutaneous Approach (ICD-10-PCS; principal; 2017-06-25)
PROC: B548ZZA Ultrasonography of Superior Vena Cava, Guidance (ICD-10-PCS; principal; 2017-06-25)
DX: A41.9 Sepsis, unspecified organism (principal); N17.0 Acute kidney failure with tubular necrosis; E43 Unspecified severe protein-calorie malnutrition; R65.21 Severe sepsis with septic shock; E87.2 Acidosis; N39.0 Urinary tract infection, site not specified; L03.90 Cellulitis, unspecified; F33.1 Major depressive disorder, recurrent, moderate; N18.3 Chronic kidney disease, stage 3 (moderate); M10.9 Gout, unspecified; E83.39 Other disorders of phosphorus metabolism; E11.22 Type 2 diabetes mellitus with diabetic chronic kidney disease; E87.8 Other disorders of electrolyte and fluid balance, not elsewhere classified; D64.9 Anemia, unspecified; E78.5 Hyperlipidemia, unspecified; E66.9 Obesity, unspecified; I12.9 Hypertensive chronic kidney disease with stage 1 through stage 4 chronic kidney disease, or unspecified chronic kidney disease; E83.42 Hypomagnesemia; L27.0 Generalized skin eruption due to drugs and medicaments taken internally; J11.1 Influenza due to unidentified influenza virus with other respiratory manifestations; T39.395A Adverse effect of other nonsteroidal anti-inflammatory drugs [NSAID], initial encounter; R31.9 Hematuria, unspecified; E11.65 Type 2 diabetes mellitus with hyperglycemia; Z79.4 Long term (current) use of insulin; Z88.8 Allergy status to other drugs, medicaments and biological substances; Z90.49 Acquired absence of other specified parts of digestive tract; Z68.37 Body mass index [BMI] 37.0-37.9, adult; Z82.5 Family history of asthma and other chronic lower respiratory diseases; Z82.49 Family history of ischemic heart disease and other diseases of the circulatory system; Z83.3 Family history of diabetes mellitus; Z79.84 Long term (current) use of oral hypoglycemic drugs; Z79.899 Other long term (current) drug therapy; W18.39XA Other fall on same level, initial encounter; Y93.89 Activity, other specified; Y92.098 Other place in other non-institutional residence as the place of occurrence of the external cause; Y99.8 Other external cause status

== ENCOUNTER 2017-08-13 12:51 | Emergency (ER) | payer OTHER ==
[~2017-08-13] VITALS: Ht 182.8 cm; Wt 145.1 kg
[~2017-08-13 12:51] MED LIST changes: +AMARYL4 MG PO; +CRESTOR20 M1 PO; +HYDR25T PO; +LISINOPRIL-HCT1 EACH PO; +LISINOPRIL20 MG PO; +METFORMIN ER500 MG PO; +MOBIC15 MG PO; +TRULICITY0.75 MG/0. SC
== END 2017-08-13 14:40 | disposition home or self-care (01) ==
LOC: ED 12:51
DX: S50.812A Abrasion of left forearm, initial encounter (principal); S09.90XA Unspecified injury of head, initial encounter; R07.81 Pleurodynia; I12.9 Hypertensive chronic kidney disease with stage 1 through stage 4 chronic kidney disease, or unspecified chronic kidney disease; E11.22 Type 2 diabetes mellitus with diabetic chronic kidney disease; N18.3 Chronic kidney disease, stage 3 (moderate); E66.9 Obesity, unspecified; E11.65 Type 2 diabetes mellitus with hyperglycemia; M10.9 Gout, unspecified; E78.00 Pure hypercholesterolemia, unspecified; Z79.4 Long term (current) use of insulin; Z68.39 Body mass index [BMI] 39.0-39.9, adult; Z90.49 Acquired absence of other specified parts of digestive tract; Z79.899 Other long term (current) drug therapy; Z88.8 Allergy status to other drugs, medicaments and biological substances; W17.89XA Other fall from one level to another, initial encounter; Y93.89 Activity, other specified; Y92.89 Other specified places as the place of occurrence of the external cause; Y99.9 Unspecified external cause status

== ENCOUNTER → 2017-08-26 | Outpatient (CLI) | payer OTHER | END | disposition home or self-care (01) | LOC: MRI 10:34 | DX: R90.89 Other abnormal findings on diagnostic imaging of central nervous system (principal) ==

== ENCOUNTER → 2018-03-11 | Outpatient (CLI) | payer OTHER | END | disposition home or self-care (01) | LOC: US 09:52 | DX: K76.0 Fatty (change of) liver, not elsewhere classified (principal); R94.5 Abnormal results of liver function studies ==

== ENCOUNTER 2018-06-03 15:04 | Inpatient (IN) | payer OTHER ==
[~2018-06-03] VITALS: Ht 185.4 cm; Wt 131.5 kg
--- NOTE | ~2018-06-03 | ST ---
[place], [place] EXERCISE STRESS TEST REPORT NAME: RIVERA BAPTISTE UNIT #: [id number] ROOM: 404 DOCTOR: MARIE MORSE MD BIRTHDATE: [birth year] DOS: 06/04/2018 LEXISCAN STRESS EKG REPORT REFERRING PHYSICIAN: Dr. Walker. INDICATION: Chest pain. The patient underwent standard protocol Lexiscan stress EKG. Baseline EKG showed normal sinus rhythm, nonspecific ST-T wave changes. Baseline heart rate of 68 with a blood pressure of 132/80. The patient's peak heart rate was 92 with a blood pressure of 140/62. The patient had no chest pain, no EKG changes, no arrhythmias. SUMMARY OF FINDINGS: Unremarkable Lexiscan stress EKG. Please see separate report for perfusion scan results. MARIE MORSE MD CM:STRESS:EXERCISE STRESS TEST REPORT [id number] MARIE MORSE MD
--- NOTE | ~2018-06-03 | EKG ---
[place], [place] ELECTROCARDIOGRAM REPORT NAME: RIVERA BAPTISTE UNIT #: [id number] ROOM: 404 DOCTOR: TY DRAFT REPORT BIRTHDATE: [birth year] [facility] Test Date: 2018-06-03 Test Time: 15:37:30 Pat Name: RIVERA BAPTISTE Department: Room: 404 Gender: M Net Sorter: OLE : 1955 Requested By: KEM PENALOZA Order Number: [id number] Reading MD: Carlos Ryan MD Measurements Intervals Cushman Rate: 76 P: 0 CO: 233 QRS: -35 QRSD: 92 T: 49 QT: 378 QTc: 426 Interpretive Statements Sinus rhythm Prolonged CO interval Left axis deviation Low voltage, precordial leads Abnormal R-wave progression, early transition Electronically Signed On 06-04-2018 12:10:57 PDT by Carlos Ryan MD CM:EKGRPT:ELECTROCARDIOGRAM REPORT [id number] 1210 KEM PENALOZA EPIPHANY DRAFT REPORT KEM PENALOZA
[2018-06-03 15:04] VITALS: BP 150/68
[2018-06-03 15:39] LABS: BASO # 0.1 10*3/uL (0.0-0.1); BASO % 0.7 % (0.0-1.0); EOS # 0.3 10*3/uL (0.0-0.4); EOS % 3.2 % (1.0-4.0); HEMATOCRIT 35.8 % (42.0-52.0); LYMPH # 2.9 10*3/uL (1.3-4.4); LYMPH % 28.5 % (27.0-41.0); MEAN CELL VOLUME 90.2 fl (80.0-94.0); MEAN CORPUSCULAR HGB 30.2 pg (27.0-31.0); MEAN CORPUSCULAR HGB CONC 33.5 g/dl (33.0-37.0); MEAN PLATELET VOLUME 10.5 fl (9.6-12.3); MONO # 0.8 10*3/uL (0.1-1.0); MONO % 7.9 % (3.0-9.0); NEUT # 6.1 10*3/uL (2.3-7.9); NEUT % 59.5 % (47.0-73.0); PLATELET COUNT AUTOMATED 275 10*3/uL (130-400); RED BLOOD COUNT 3.97 10*6/uL (4.50-5.90); RED CELL DISTRI WIDTH 13.9 % (0-14.5); WHITE BLOOD COUNT 10.2 10*3/uL (4.8-10.8)
[2018-06-03 15:55] LABS: ALBUMIN 3.2 gm/dl (3.1-4.5); ALKALINE PHOSPHATASE 106 U/L (45-117); BUN 32 mg/dl (7-24); CHLORIDE 104 mmol/L (98-107); CREATININE 1.56 mg/dL (0.70-1.30); POTASSIUM 4.4 mmol/L (3.5-5.1); SGOT/AST 33 IU/L (3-35); SGPT/ALT 48 U/L (12-78); SODIUM 133 mmol/L (136-145); TOTAL PROTEIN 7.2 gm/dL (6.4-8.2)
[2018-06-03 16:16] LABS: TROPONIN I < 0.015 ng/ml (<0.045)
[2018-06-03 17:23] VITALS: BP 161/75
[2018-06-03] MEDS ORDERED: GABAPENTIN TAB600 MG PO (17:52)
[2018-06-03] MEDS ORDERED: TAMSULOSIN HCL0.4 MG PO (17:52)
[2018-06-03 18:30] VITALS: BP 164/84
[2018-06-03 18:45] LABS: BILIRUBIN NEGATIVE (NEGATIVE); BLOOD TRACE-INTACT (NEGATIVE); CLARITY CLEAR (CLEAR); COLOR YELLOW (YELLOW); GLUCOSE 3+ (NEGATIVE); KETONE NEGATIVE (NEGATIVE); LEUKO ESTERASE NEGATIVE (NEGATIVE); NITRITE NEGATIVE (NEGATIVE); SPECIFIC GRAVITY 1.015 (1.005-1.030); UROBILINOGEN 0.2 E.U./dl (0.2-1.0)
[2018-06-03] MEDS ORDERED: VITAMIN E400 UNI3 PO (18:47)
[2018-06-03] MEDS ORDERED: VITAMIN D400 UNI1 PO (18:48)
[2018-06-03] MEDS ORDERED: VICO75300 PO (18:48)
[2018-06-03 18:50] LABS: EPITHELIAL CELLS 0-3
[2018-06-03 18:51] LABS: BACTERIA TRACE; WBC 0-2 wbc/hpf (0-5)
[2018-06-03 20:00] VITALS: BP 161/75
[2018-06-04] VITALS: BP 148/64
[2018-06-04 06:52] LABS: BASO # 0.1 10*3/uL (0.0-0.1); BASO % 0.8 % (0.0-1.0); EOS # 0.4 10*3/uL (0.0-0.4); EOS % 4.3 % (1.0-4.0); HEMATOCRIT 37.1 % (42.0-52.0); HEMOGLOBIN 11.7 g/dl (14.0-18.0); LYMPH # 2.8 10*3/uL (1.3-4.4); MEAN CELL VOLUME 91.6 fl (80.0-94.0); MEAN CORPUSCULAR HGB 28.9 pg (27.0-31.0); MEAN CORPUSCULAR HGB CONC 31.5 g/dl (33.0-37.0); MEAN PLATELET VOLUME 10.5 fl (9.6-12.3); MONO # 0.8 10*3/uL (0.1-1.0); MONO % 7.7 % (3.0-9.0); NEUT # 5.9 10*3/uL (2.3-7.9); NEUT % 58.9 % (47.0-73.0); PLATELET COUNT AUTOMATED 276 10*3/uL (130-400); RED BLOOD COUNT 4.05 10*6/uL (4.50-5.90); RED CELL DISTRI WIDTH 13.8 % (0-14.5)
[2018-06-04 07:05] LABS: BUN 27 mg/dl (7-24); CHLORIDE 110 mmol/L (98-107); CHOLESTEROL 104 mg/dL (<200); CREATININE 1.21 mg/dL (0.70-1.30); PHOSPHOROUS 3.6 mg/dL (2.5-4.9); POTASSIUM 3.7 mmol/L (3.5-5.1); SODIUM 141 mmol/L (136-145); TRIGLYCERIDES 148 mg/dl (<150); VLDL CHOLESTEROL 30 mg/dL (6-40)
[2018-06-04 07:16] LABS: FREE T4 0.77 ng/dl (0.76-1.46); HDL CHOLESTEROL 31 mg/dl (40-60); LDL CHOLESTEROL 43 mg/dL (9-159)
[2018-06-04 07:57] LABS: VITAMIN D, 25-HYDROXY 20.5 ng/mL (30-100)
[2018-06-04 08:00] VITALS: BP 155/72
[2018-06-04 12:00] VITALS: BP 134/77
[2018-06-04 14:08] VITALS: BP 161/63
== END 2018-06-04 16:16 | disposition home or self-care (01) | DRG 205 ==
LOC: ED 15:04 → 4E 17:30 → EDHOLD 17:30 → 4E 17:31
PROVIDERS: Internal Medicine; Nurse Practitioner Family
PROC: 3E073KZ Introduction of Other Diagnostic Substance into Coronary Artery, Percutaneous Approach (ICD-10-PCS; principal; 2018-06-04)
PROC: 4A02XM4 Measurement of Cardiac Total Activity, External Approach (ICD-10-PCS; principal; 2018-06-04)
DX: M94.0 Chondrocostal junction syndrome [Tietze] (principal); E43 Unspecified severe protein-calorie malnutrition; E87.1 Hypo-osmolality and hyponatremia; D64.9 Anemia, unspecified; E66.9 Obesity, unspecified; E11.65 Type 2 diabetes mellitus with hyperglycemia; I12.9 Hypertensive chronic kidney disease with stage 1 through stage 4 chronic kidney disease, or unspecified chronic kidney disease; E78.5 Hyperlipidemia, unspecified; E55.9 Vitamin D deficiency, unspecified; F32.9 Major depressive disorder, single episode, unspecified; E11.22 Type 2 diabetes mellitus with diabetic chronic kidney disease; N18.3 Chronic kidney disease, stage 3 (moderate); Y93.89 Activity, other specified; W18.39XA Other fall on same level, initial encounter; Y92.89 Other specified places as the place of occurrence of the external cause; Y99.8 Other external cause status; Z79.4 Long term (current) use of insulin; Z87.891 Personal history of nicotine dependence; Z68.38 Body mass index [BMI] 38.0-38.9, adult; Z88.8 Allergy status to other drugs, medicaments and biological substances; Z90.49 Acquired absence of other specified parts of digestive tract; Z82.5 Family history of asthma and other chronic lower respiratory diseases; Z82.49 Family history of ischemic heart disease and other diseases of the circulatory system; Z83.3 Family history of diabetes mellitus; Z79.899 Other long term (current) drug therapy; Z79.84 Long term (current) use of oral hypoglycemic drugs

== ENCOUNTER 2019-01-09 21:14 | Emergency (ER) | payer OTHER ==
[~2019-01-09] VITALS: Ht 185.4 cm; Wt 137.0 kg
[~2019-01-09 21:14] MED LIST changes: +NEURONTIN800 MG PO; +TAMSULOSIN HCL0.4 MG PO; +VICO75300 PO; +VITAMIN D400 UNI1 PO; +VITAMIN E400 UNI3 PO
[2019-02-24] MEDS ORDERED: AMLODIPINE BESY10 MG PO (02:28)
[2019-02-24] MEDS ORDERED: 'XANAX1 MG PO (02:30)
[2019-02-24] MEDS ORDERED: GLIPIZIDE10 M2 PO (02:30)
[2019-02-24] MEDS ORDERED: TRESIBA100 UNIT/1 SQ (08:42)
[2019-02-24] MEDS ORDERED: OZEMPIC0.25 MG/01 SQ (08:43)
[2019-02-24] MEDS ORDERED: NORVASC5 MG PO (15:12)
[2019-02-24] MEDS ORDERED: KLOR-CON M2020 ME1 PO (15:13)
[2019-02-24] MEDS ORDERED: FUROSEMIDE20 M1 PO (15:13)
[2019-04-02] MEDS ORDERED: GLIPIZIDE10 M2 PO (11:59)
[2019-04-02] MEDS ORDERED: AMLODIPINE BESY10 MG PO (12:00)
== END 2019-01-10 02:47 | disposition home or self-care (01) ==
LOC: ED 21:14
DX: S86.911A Strain of unspecified muscle(s) and tendon(s) at lower leg level, right leg, initial encounter (principal); E78.5 Hyperlipidemia, unspecified; E66.9 Obesity, unspecified; I12.9 Hypertensive chronic kidney disease with stage 1 through stage 4 chronic kidney disease, or unspecified chronic kidney disease; E11.22 Type 2 diabetes mellitus with diabetic chronic kidney disease; N18.3 Chronic kidney disease, stage 3 (moderate); M10.9 Gout, unspecified; Z68.39 Body mass index [BMI] 39.0-39.9, adult; Z88.8 Allergy status to other drugs, medicaments and biological substances; Z87.891 Personal history of nicotine dependence; X58.XXXA Exposure to other specified factors, initial encounter; Y93.89 Activity, other specified; Y92.89 Other specified places as the place of occurrence of the external cause; Y99.8 Other external cause status

== ENCOUNTER 2019-04-08 17:08 | Inpatient (IN) | payer OTHER ==
[~2019-04-08] VITALS: Ht 185.4 cm; Wt 131.6 kg
[2019-04-08] VITALS (8 sets, daily range): BP systolic 115–139; BP diastolic 46–65
--- NOTE | ~2019-04-08 | EKG ---
[place], [place] ELECTROCARDIOGRAM REPORT NAME: RIVERA BAPTISTE UNIT #: [id number] ROOM: [facility] DOCTOR: TY DRAFT REPORT BIRTHDATE: [birth year] [facility] Test Date: 2019-04-08 Test Time: 17:36:56 Pat Name: RIVERA BAPTISTE Department: Room: [facility] Gender: M Clinical Trial Educator: Amalia Alcocer : 1955 Requested By: SAMI JERRY Order Number: [id number] Reading MD: Timoteo Zavala MD Measurements Intervals [place] Rate: 79 P: -5 MN: 215 QRS: -27 QRSD: 97 T: 127 QT: 347 QTc: 398 Interpretive Statements Sinus rhythm with first degree AV block Borderline left axis deviation Low voltage, precordial leads Nonspecific T wave abnormality Electronically Signed On 04-09-2019 8:01:13 PDT by Timoteo Zavala MD CM:EKGRPT:ELECTROCARDIOGRAM REPORT [id number] SAMI COLLINS DRAFT REPORT SAMI JERRY DO
[~2019-04-08 17:08] MED LIST changes: +'XANAX1 MG PO; +AMLODIPINE BESY10 MG PO; +FUROSEMIDE20 M1 PO; +GLIPIZIDE10 M2 PO; +KLOR-CON M2020 ME1 PO; +NORVASC5 MG PO; +OZEMPIC0.25 MG/01 SQ; +TRESIBA100 UNIT/1 SQ
--- NOTE | 2019-04-08 17:22 | NUR ---
POISON CONTROL WAS CONTACTED THEY STATE THAT "THE PT SHOULD BE OBSERVATION FOR 6 HOURS LONG THE BP IS STABLE. IF THE PT HAS HYPOTENSION OR REBOUND TACHYCARDIA FLUIDS SHOULD BE INITIATED, IF PRESSORS EED TO BE INITIATED THEY RECOMMEND EPI OR NOREPI. THEY ALSO RECOMMEND GETTING A TYLENOL, ASA, ALCOHOL LEVEL AND ALSO AN EKG"
[2019-04-08 17:41] LABS: BASO # 0.1 10*3/uL (0.0-0.1); BASO % 0.7 % (0.0-1.0); EOS # 0.2 10*3/uL (0.0-0.4); EOS % 1.9 % (1.0-4.0); HEMATOCRIT 37.2 % (42.0-52.0); HEMOGLOBIN 12.1 g/dl (14.0-18.0); LYMPH # 2.7 10*3/uL (1.3-4.4); MEAN CELL VOLUME 95.4 fl (80.0-94.0); MEAN CORPUSCULAR HGB CONC 32.5 g/dl (33.0-37.0); MEAN PLATELET VOLUME 11.1 fl (9.6-12.3); MONO # 0.8 10*3/uL (0.1-1.0); MONO % 7.7 % (3.0-9.0); NEUT # 6.9 10*3/uL (2.3-7.9); NEUT % 64.4 % (47.0-73.0); PLATELET COUNT AUTOMATED 280 10*3/uL (130-400); RED CELL DISTRI WIDTH 14.4 % (0-14.5); WHITE BLOOD COUNT 10.7 10*3/uL (4.8-10.8)
[2019-04-08 17:52] LABS: ACT PARTIAL THROMBO TIME 24.5 SECONDS (20.0-32.1)
[2019-04-08 17:58] LABS: ALBUMIN 3.4 gm/dl (3.1-4.5); ALKALINE PHOSPHATASE 93 U/L (45-117); BUN 42 mg/dl (7-24); CHLORIDE 110 mmol/L (98-107); CREATININE 1.93 mg/dL (0.70-1.30); LIPASE 311 U/L (73-393); POTASSIUM 4.2 mmol/L (3.5-5.1); SGOT/AST 13 IU/L (3-35); SGPT/ALT 21 U/L (12-78); SODIUM 140 mmol/L (136-145); TOTAL PROTEIN 7.3 gm/dL (6.4-8.2)
[2019-04-08 18:05] LABS: ACETAMINOPHEN (TYLENOL) < 5.0 ug/ml (10-30); ETHYL ALCOHOL < 3.0 mg/dl (<3); TROPONIN I < 0.015 ng/ml (<0.045)
--- NOTE | 2019-04-08 18:22 | NUR ---
PT REFUSED TO PUT GOWN ON. PT LEFT ON SHIRT, UNDERWEAR AND KEPT WALLET AND PHONE. PT DEMANDED THAT WE NOT TAKE HIS WALLET AND NOT PUT A GOWN ON. OTHER BELONGINGS PLACED IN BELONGINGS BAG.
--- NOTE | 2019-04-08 19:02 | NUR ---
ROOM SSIGNED TO ICU AT THIS TIME ICU UNABLE TO ACCEPT PT TO THE FLOOR BUT GAVE REPORT OVER THE PHONE TO CLEANING PORTER. REPORT ALSO GIVEN TO VARGHESE TILLMAN RN FOR CONTINUATION OF CARE.
--- NOTE | 2019-04-08 19:36 | NUR ---
A 63, admitted to ICCU, under the services of SHAAN Woody DO with a diagnosis of suicide attempt and intentional drug overdose. Chief complaint is feeling like things aren't going good so ingested "8 or so" Norvascs. Patient arrived via wheel chair from ER. Monitor applied. Initial assessment completed. Vital signs taken and recorded. SHAAN WOODY DO notified of admission to the unit. Orders received. See assessment for past medical history, medications and allergies. Patient and/or family oriented to unit. [facility] ICCU visitation policy reviewed. Clothing/patient valuable form completed. ALEK LANE
--- NOTE | 2019-04-08 20:54 | NUR ---
MED REC UP TO DATE PER MED CLAIM HISTORY AND PATIENT.
--- NOTE | 2019-04-08 23:43 | NUR ---
PATIENT RESTING IN BED AT THIS TIME. VSS. DENIES ANY DISCOMFORTS. WITHIN SIGHT OF NURSING STAFF. CALL LIGHT IN REACH.
[2019-04-09] VITALS: BP 132/56
[2019-04-09 00:16] LABS: BILIRUBIN NEGATIVE (NEGATIVE); BLOOD NEGATIVE (NEGATIVE); CLARITY CLEAR (CLEAR); COLOR YELLOW (YELLOW); GLUCOSE NEGATIVE (NEGATIVE); KETONE TRACE (NEGATIVE); LEUKO ESTERASE NEGATIVE (NEGATIVE); NITRITE NEGATIVE (NEGATIVE); PH 5.5 (5.0-9.0); UROBILINOGEN 0.2 E.U./dl (0.2-1.0)
[2019-04-09 00:28] LABS: URINE AMPHETAMINES < 1000 (1000ng/ml); URINE BARBITURATES < 200 (200ng/ml); URINE BENZODIAZEPINES < 200 (200ng/ml); URINE CANNABINOIDS (THC) < 50 (50ng/ml); URINE COCAINE < 300 (300ng/ml); URINE METHADONE < 300 (300ng/ml); URINE OPIATES < 300 (300ng/ml)
[2019-04-09 00:32] LABS: URINE PHENCYCLIDINE < 25 (25ng/ml)
[2019-04-09 04:00] VITALS: BP 99/37
[2019-04-09 05:14] LABS: ALBUMIN 3.3 gm/dl (3.1-4.5); CREATININE 1.85 mg/dL (0.70-1.30); POTASSIUM 3.5 mmol/L (3.5-5.1); TOTAL PROTEIN 6.8 gm/dL (6.4-8.2)
--- NOTE | 2019-04-09 05:28 | NUR ---
PATIENT BP 99/37 WITH MAP OF 57. HOLDING ANY MEDS THAT COULD POTENTIALLY REDUCE BP MORE. PATIENT SLEEPING SOUNDLY IN HIS BED.
[2019-04-09 06:54] LABS: BASO # 0.1 10*3/uL (0.0-0.1); BASO % 0.9 % (0.0-1.0); EOS # 0.2 10*3/uL (0.0-0.4); EOS % 2.5 % (1.0-4.0); HEMATOCRIT 37.6 % (42.0-52.0); LYMPH # 2.2 10*3/uL (1.3-4.4); LYMPH % 24.4 % (27.0-41.0); MEAN CELL VOLUME 95.2 fl (80.0-94.0); MEAN CORPUSCULAR HGB 30.4 pg (27.0-31.0); MEAN CORPUSCULAR HGB CONC 31.9 g/dl (33.0-37.0); MEAN PLATELET VOLUME 11.7 fl (9.6-12.3); MONO # 0.8 10*3/uL (0.1-1.0); MONO % 8.9 % (3.0-9.0); NEUT # 5.6 10*3/uL (2.3-7.9); PLATELET COUNT AUTOMATED 260 10*3/uL (130-400); RED BLOOD COUNT 3.95 10*6/uL (4.50-5.90); RED CELL DISTRI WIDTH 14.1 % (0-14.5); WHITE BLOOD COUNT 8.8 10*3/uL (4.8-10.8)
[2019-04-09 07:50] VITALS: BP 120/65
--- NOTE | 2019-04-09 08:15 | NUR ---
U CALLED AND NOTIFIED OF CONSULT.
--- NOTE | 2019-04-09 11:55 | NUR ---
DISCHARGED TO [facility]
== END 2019-04-09 11:55 | disposition home health service (06) | DRG 917 ==
LOC: ED 17:08 → EDHOLD 18:31 → ICCU 19:02
PROVIDERS: Emergency Medicine; Internal Medicine; ADMIT Internal Medicine
DX: T46.1X2A Poisoning by calcium-channel blockers, intentional self-harm, initial encounter (principal); N17.0 Acute kidney failure with tubular necrosis; F33.9 Major depressive disorder, recurrent, unspecified; E78.5 Hyperlipidemia, unspecified; I12.9 Hypertensive chronic kidney disease with stage 1 through stage 4 chronic kidney disease, or unspecified chronic kidney disease; M25.551 Pain in right hip; G89.29 Other chronic pain; Z66 Do not resuscitate; Z51.5 Encounter for palliative care; M10.9 Gout, unspecified; D53.9 Nutritional anemia, unspecified; E11.65 Type 2 diabetes mellitus with hyperglycemia; N18.3 Chronic kidney disease, stage 3 (moderate); E11.22 Type 2 diabetes mellitus with diabetic chronic kidney disease; Y92.89 Other specified places as the place of occurrence of the external cause; Z79.4 Long term (current) use of insulin; Z68.38 Body mass index [BMI] 38.0-38.9, adult; Z90.49 Acquired absence of other specified parts of digestive tract; Z87.891 Personal history of nicotine dependence; Z82.5 Family history of asthma and other chronic lower respiratory diseases; Z82.49 Family history of ischemic heart disease and other diseases of the circulatory system; Z84.89 Family history of other specified conditions; Z88.8 Allergy status to other drugs, medicaments and biological substances; Z79.899 Other long term (current) drug therapy

== ENCOUNTER 2019-04-09 11:34 | Inpatient (IN) | payer OTHER ==
[~2019-04-09] VITALS: Ht 185.4 cm; Wt 131.5 kg
[2019-04-09 13:45] VITALS: BP 114/57
[2019-04-09 20:00] VITALS: BP 108/61
[2019-04-10 07:19] LABS: THYROID STIM HORMONE (HS) 0.571 uIU/ml (0.358-4.75)
[2019-04-10 07:34] LABS: VITAMIN D, 25-HYDROXY 20.8 ng/mL (30-100)
[2019-04-10 07:47] VITALS: BP 113/49
[2019-04-10 20:00] VITALS: BP 110/69
[2019-04-11 08:10] VITALS: BP 110/95
[2019-04-11 19:07] VITALS: BP 115/72
[2019-04-12 07:39] VITALS: BP 112/70
[2019-04-12 19:09] VITALS: BP 107/72
[2019-04-13 07:59] VITALS: BP 94/61
[2019-04-13 09:31] VITALS: BP 104/60; BP 110/58
[2019-04-13 19:39] VITALS: BP 100/60
[2019-04-14 07:11] LABS: BASO # 0.1 10*3/uL (0.0-0.1); BASO % 0.7 % (0.0-1.0); EOS # 0.2 10*3/uL (0.0-0.4); EOS % 3.4 % (1.0-4.0); HEMATOCRIT 35.4 % (42.0-52.0); HEMOGLOBIN 11.6 g/dl (14.0-18.0); LYMPH # 2.3 10*3/uL (1.3-4.4); MEAN CELL VOLUME 93.2 fl (80.0-94.0); MEAN CORPUSCULAR HGB 30.5 pg (27.0-31.0); MEAN CORPUSCULAR HGB CONC 32.8 g/dl (33.0-37.0); MEAN PLATELET VOLUME 11.7 fl (9.6-12.3); MONO # 0.6 10*3/uL (0.1-1.0); MONO % 7.8 % (3.0-9.0); NEUT # 3.9 10*3/uL (2.3-7.9); NEUT % 54.8 % (47.0-73.0); PLATELET COUNT AUTOMATED 302 10*3/uL (130-400); RED CELL DISTRI WIDTH 14.1 % (0-14.5); WHITE BLOOD COUNT 7.1 10*3/uL (4.8-10.8)
[2019-04-14 07:30] LABS: CREATININE 2.56 mg/dL (0.70-1.30); POTASSIUM 3.8 mmol/L (3.5-5.1)
[2019-04-14 07:43] VITALS: BP 122/51
[2019-04-14 19:53] VITALS: BP 127/60
[2019-04-15 05:04] LABS: BILIRUBIN NEGATIVE (NEGATIVE); BLOOD NEGATIVE (NEGATIVE); CLARITY CLEAR (CLEAR); COLOR YELLOW (YELLOW); GLUCOSE NEGATIVE (NEGATIVE); KETONE NEGATIVE (NEGATIVE); LEUKO ESTERASE TRACE (NEGATIVE); NITRITE NEGATIVE (NEGATIVE); PH 5.5 (5.0-9.0); UROBILINOGEN 0.2 E.U./dl (0.2-1.0)
[2019-04-15 06:57] LABS: CREATININE 2.42 mg/dL (0.70-1.30); POTASSIUM 4.5 mmol/L (3.5-5.1)
[2019-04-15 08:14] VITALS: BP 110/60
[2019-04-15 20:00] VITALS: BP 121/73
[2019-04-16 07:15] LABS: CREATININE 2.16 mg/dL (0.70-1.30); PHOSPHOROUS 2.8 mg/dL (2.5-4.9); POTASSIUM 4.2 mmol/L (3.5-5.1)
[2019-04-16 08:11] VITALS: BP 120/61
[2019-04-16 19:54] VITALS: BP 118/62
[2019-04-17 07:10] LABS: ALBUMIN 3.2 gm/dl (3.1-4.5); CREATININE 2.13 mg/dL (0.70-1.30); PHOSPHOROUS 2.8 mg/dL (2.5-4.9); POTASSIUM 4.3 mmol/L (3.5-5.1)
[2019-04-17 07:45] VITALS: BP 128/82
[2019-04-17 20:13] VITALS: BP 160/61
[2019-04-18 07:48] VITALS: BP 111/62
[2019-04-18 19:40] VITALS: BP 130/88
[2019-04-19 08:33] VITALS: BP 175/79
[2019-04-19 08:49] VITALS: BP 140/64
[2019-04-19] MEDS ORDERED: DULOXETINE HCL60 MG PO (09:14)
[2019-04-19] MEDS ORDERED: AMLODIPINE BESYL5 MG PO (11:38)
== END 2019-04-19 13:33 | disposition home or self-care (01) | DRG 885 ==
LOC: 3N 11:34
PROVIDERS: Registered Nurse; Student in an Organized Health Care Education/Training Program; ADMIT Psychiatry & Neurology Psychiatry
DX: F33.2 Major depressive disorder, recurrent severe without psychotic features (principal); N17.0 Acute kidney failure with tubular necrosis; R45.851 Suicidal ideations; F34.1 Dysthymic disorder; E11.65 Type 2 diabetes mellitus with hyperglycemia; E78.5 Hyperlipidemia, unspecified; M1A.9XX0 Chronic gout, unspecified, without tophus (tophi); I12.9 Hypertensive chronic kidney disease with stage 1 through stage 4 chronic kidney disease, or unspecified chronic kidney disease; N18.3 Chronic kidney disease, stage 3 (moderate); F60.9 Personality disorder, unspecified; E66.9 Obesity, unspecified; M25.551 Pain in right hip; G89.29 Other chronic pain; E11.22 Type 2 diabetes mellitus with diabetic chronic kidney disease; D53.9 Nutritional anemia, unspecified; R42 Dizziness and giddiness; T50.995A Adverse effect of other drugs, medicaments and biological substances, initial encounter; Y92.238 Other place in hospital as the place of occurrence of the external cause; Z79.4 Long term (current) use of insulin; Z88.8 Allergy status to other drugs, medicaments and biological substances; Z87.891 Personal history of nicotine dependence; Z91.5 Personal history of self-harm; Z90.49 Acquired absence of other specified parts of digestive tract; Z82.5 Family history of asthma and other chronic lower respiratory diseases; Z84.89 Family history of other specified conditions; Z82.49 Family history of ischemic heart disease and other diseases of the circulatory system; Z79.899 Other long term (current) drug therapy

== ENCOUNTER 2019-04-19 18:57 | Emergency (ER) | payer OTHER ==
[~2019-04-19] VITALS: Ht 185.4 cm; Wt 131.5 kg
[~2019-04-19 18:57] MED LIST changes: +AMLODIPINE BESYL5 MG PO; +DULOXETINE HCL60 MG PO
[2019-04-19 19:53] LABS: BILIRUBIN NEGATIVE (NEGATIVE); BLOOD 1+ (NEGATIVE); CLARITY CLEAR (CLEAR); COLOR YELLOW (YELLOW); GLUCOSE 1+ (NEGATIVE); KETONE NEGATIVE (NEGATIVE); LEUKO ESTERASE NEGATIVE (NEGATIVE); NITRITE NEGATIVE (NEGATIVE); PH 5.5 (5.0-9.0); UROBILINOGEN 0.2 E.U./dl (0.2-1.0)
[2019-04-19 19:58] LABS: EPITHELIAL CELLS 21-30
[2019-04-19 19:59] LABS: BACTERIA TRACE
== END 2019-04-19 20:51 | disposition home or self-care (01) ==
LOC: ED 18:57
PROVIDERS: Emergency Medicine
DX: R33.9 Retention of urine, unspecified (principal); M10.9 Gout, unspecified; E78.5 Hyperlipidemia, unspecified; I12.9 Hypertensive chronic kidney disease with stage 1 through stage 4 chronic kidney disease, or unspecified chronic kidney disease; E11.22 Type 2 diabetes mellitus with diabetic chronic kidney disease; N18.3 Chronic kidney disease, stage 3 (moderate); Z88.8 Allergy status to other drugs, medicaments and biological substances; Z79.899 Other long term (current) drug therapy; Z87.891 Personal history of nicotine dependence

== ENCOUNTER 2019-04-21 14:41 | Emergency (ER) | payer OTHER ==
[~2019-04-21] VITALS: Ht 185.4 cm; Wt 136.1 kg
[2019-04-22] MEDS ORDERED: KEFLEX500 M1 PO (05:11)
== END 2019-04-21 16:40 | disposition left against medical advice (07) ==
LOC: ED 14:41
DX: Z46.6 Encounter for fitting and adjustment of urinary device (principal); R33.9 Retention of urine, unspecified; I10 Essential (primary) hypertension; E11.9 Type 2 diabetes mellitus without complications; E78.5 Hyperlipidemia, unspecified; Z88.8 Allergy status to other drugs, medicaments and biological substances; Z79.899 Other long term (current) drug therapy; Z90.49 Acquired absence of other specified parts of digestive tract; Z87.891 Personal history of nicotine dependence

== ENCOUNTER 2019-04-22 02:58 | Emergency (ER) | payer OTHER ==
[~2019-04-22] VITALS: Wt 136.1 kg
[2019-04-22 03:20] LABS: BASO # 0.1 10*3/uL (0.0-0.1); BASO % 1.1 % (0.0-1.0); EOS # 0.4 10*3/uL (0.0-0.4); EOS % 4.6 % (1.0-4.0); HEMATOCRIT 30.7 % (42.0-52.0); HEMOGLOBIN 9.9 g/dl (14.0-18.0); LYMPH # 2.8 10*3/uL (1.3-4.4); LYMPH % 31.3 % (27.0-41.0); MEAN CELL VOLUME 94.8 fl (80.0-94.0); MEAN CORPUSCULAR HGB 30.6 pg (27.0-31.0); MEAN CORPUSCULAR HGB CONC 32.2 g/dl (33.0-37.0); MEAN PLATELET VOLUME 10.7 fl (9.6-12.3); MONO # 0.8 10*3/uL (0.1-1.0); NEUT # 4.7 10*3/uL (2.3-7.9); NEUT % 53.8 % (47.0-73.0); PLATELET COUNT AUTOMATED 273 10*3/uL (130-400); RED BLOOD COUNT 3.24 10*6/uL (4.50-5.90); RED CELL DISTRI WIDTH 14.6 % (0-14.5); WHITE BLOOD COUNT 8.8 10*3/uL (4.8-10.8)
[2019-04-22 03:32] LABS: CREATININE 1.74 mg/dL (0.70-1.30)
[2019-04-22 03:45] LABS: BILIRUBIN NEGATIVE (NEGATIVE); BLOOD 3+ (NEGATIVE); CLARITY SL CLOUDY (CLEAR); COLOR YELLOW (YELLOW); GLUCOSE NEGATIVE (NEGATIVE); KETONE NEGATIVE (NEGATIVE); LEUKO ESTERASE 1+ (NEGATIVE); NITRITE NEGATIVE (NEGATIVE); PH 6.5 (5.0-9.0); SPECIFIC GRAVITY <= 1.005 (1.005-1.030); UROBILINOGEN 0.2 E.U./dl (0.2-1.0)
[2019-04-22 03:54] LABS: BACTERIA 1+; WBC 16-20 wbc/hpf (0-5)
[2019-04-22] MEDS ORDERED: KEFLEX500 M1 PO (05:11)
== END 2019-04-22 05:41 | disposition home or self-care (01) ==
LOC: ED 02:58
PROVIDERS: Nurse Practitioner
DX: R33.9 Retention of urine, unspecified (principal); N39.0 Urinary tract infection, site not specified; Z79.899 Other long term (current) drug therapy; Z90.49 Acquired absence of other specified parts of digestive tract; Z87.891 Personal history of nicotine dependence

== ENCOUNTER 2019-04-28 13:12 | Emergency (ER) | payer OTHER ==
[~2019-04-28] VITALS: Wt 136.1 kg
[2019-04-28 13:58] LABS: BILIRUBIN NEGATIVE (NEGATIVE); BLOOD TRACE-INTACT (NEGATIVE); CLARITY SL CLOUDY (CLEAR); COLOR YELLOW (YELLOW); GLUCOSE 1+ (NEGATIVE); KETONE NEGATIVE (NEGATIVE); LEUKO ESTERASE NEGATIVE (NEGATIVE); NITRITE NEGATIVE (NEGATIVE); UROBILINOGEN 0.2 E.U./dl (0.2-1.0)
[2019-04-28 14:14] LABS: BACTERIA TRACE; EPITHELIAL CELLS 0-2
== END 2019-04-28 13:55 | disposition home or self-care (01) ==
LOC: ED 13:12
PROVIDERS: Nurse Practitioner Family
DX: R33.9 Retention of urine, unspecified (principal); Z79.899 Other long term (current) drug therapy; Z88.8 Allergy status to other drugs, medicaments and biological substances; Z87.891 Personal history of nicotine dependence; Z90.49 Acquired absence of other specified parts of digestive tract

== ENCOUNTER → 2019-04-28 | Outpatient (CLI) | payer OTHER ==
[~2019-04-28] MED LIST changes: +KEFLEX500 M1 PO
== END | disposition home or self-care (01) ==
LOC: LAB 14:50
DX: D40.0 Neoplasm of uncertain behavior of prostate (principal)

== ENCOUNTER 2019-12-10 00:46 | Emergency (ER) | payer OTHER ==
[~2019-12-10] VITALS: Ht 185.4 cm; Wt 138.3 kg
[2019-12-10 01:29] LABS: BASO # 0.1 10*3/uL (0.0-0.1); BASO % 0.9 % (0.0-1.0); EOS # 0.3 10*3/uL (0.0-0.4); EOS % 2.8 % (1.0-4.0); HEMATOCRIT 36.5 % (42.0-52.0); LYMPH # 2.7 10*3/uL (1.3-4.4); LYMPH % 27.4 % (27.0-41.0); MEAN CELL VOLUME 91.9 fl (80.0-94.0); MEAN CORPUSCULAR HGB 30.5 pg (27.0-31.0); MEAN CORPUSCULAR HGB CONC 33.2 g/dl (33.0-37.0); MEAN PLATELET VOLUME 10.7 fl (9.6-12.3); MONO # 0.9 10*3/uL (0.1-1.0); MONO % 8.9 % (3.0-9.0); NEUT # 5.8 10*3/uL (2.3-7.9); NEUT % 59.7 % (47.0-73.0); PLATELET COUNT AUTOMATED 317 10*3/uL (130-400); RED BLOOD COUNT 3.97 10*6/uL (4.50-5.90); RED CELL DISTRI WIDTH 13.9 % (0-14.5); WHITE BLOOD COUNT 9.7 10*3/uL (4.8-10.8)
[2019-12-10 01:39] LABS: ACT PARTIAL THROMBO TIME 25.1 SECONDS (20.0-32.1); INTERNATIONAL NORM RATIO 0.9 (2.0-3.5)
[2019-12-10 01:45] LABS: CREATININE 2.1 mg/dL (0.70-1.30); POTASSIUM 4.9 mmol/L (3.5-5.1)
[2019-12-10 01:48] LABS: LIPASE 254 U/L (73-393)
[2019-12-10 01:50] LABS: TROPONIN I < 0.015 ng/ml (<0.045)
[2019-12-10 01:52] LABS: BILIRUBIN NEGATIVE (NEGATIVE); BLOOD 1+ (NEGATIVE); CLARITY CLEAR (CLEAR); COLOR STRAW (YELLOW); GLUCOSE 3+ (NEGATIVE); KETONE NEGATIVE (NEGATIVE); LEUKO ESTERASE NEGATIVE (NEGATIVE); NITRITE NEGATIVE (NEGATIVE); PH 6.5 (5.0-9.0); SPECIFIC GRAVITY 1.005 (1.005-1.030); UROBILINOGEN 0.2 E.U./dl (0.2-1.0)
[2019-12-10 01:56] LABS: BACTERIA TRACE; EPITHELIAL CELLS 0-2; WBC 0-2 wbc/hpf (0-5)
== END 2019-12-10 04:30 | disposition home or self-care (01) ==
LOC: ED 00:46
PROVIDERS: Emergency Medicine Emergency Medical Services
DX: E11.65 Type 2 diabetes mellitus with hyperglycemia (principal); E78.5 Hyperlipidemia, unspecified; E11.22 Type 2 diabetes mellitus with diabetic chronic kidney disease; I12.9 Hypertensive chronic kidney disease with stage 1 through stage 4 chronic kidney disease, or unspecified chronic kidney disease; N18.3 Chronic kidney disease, stage 3 (moderate); E66.9 Obesity, unspecified; Z88.8 Allergy status to other drugs, medicaments and biological substances; Z79.899 Other long term (current) drug therapy; Z79.2 Long term (current) use of antibiotics; Z90.49 Acquired absence of other specified parts of digestive tract; Z87.891 Personal history of nicotine dependence; Z87.442 Personal history of urinary calculi

== ENCOUNTER 2020-01-19 16:46 | Inpatient (IN) | payer OTHER ==
[~2020-01-19] VITALS: Ht 185.4 cm; Wt 144.0 kg
[2020-01-19 16:47] VITALS: BP 152/66
--- NOTE | 2020-01-19 17:30 | NUR ---
PT STATES HAS TO URINATE URINAL OFFERED PT REFUSED REQUESTING TO GET UP TO BEDSIDE COMMODE. 3 ASSISTS TO BEDSIDE COMMODE. PT STATES UNABLE TO GO NOW.
[2020-01-19 17:37] LABS: BACTERIA TRACE; BILIRUBIN NEGATIVE (NEGATIVE); BLOOD 2+ (NEGATIVE); CLARITY CLEAR (CLEAR); COLOR YELLOW (YELLOW); GLUCOSE NEGATIVE (NEGATIVE); KETONE NEGATIVE (NEGATIVE); LEUKO ESTERASE NEGATIVE (NEGATIVE); NITRITE NEGATIVE (NEGATIVE); UROBILINOGEN 0.2 E.U./dl (0.2-1.0); WBC 0-2 wbc/hpf (0-5)
[2020-01-19 17:41] LABS: BASO # 0.1 10*3/uL (0.0-0.1); BASO % 0.8 % (0.0-1.0); EOS # 0.1 10*3/uL (0.0-0.4); EOS % 0.8 % (1.0-4.0); HEMATOCRIT 37.7 % (42.0-52.0); LYMPH # 1.4 10*3/uL (1.3-4.4); LYMPH % 16.8 % (27.0-41.0); MEAN CELL VOLUME 93.8 fl (80.0-94.0); MEAN CORPUSCULAR HGB 29.9 pg (27.0-31.0); MEAN CORPUSCULAR HGB CONC 31.8 g/dl (33.0-37.0); MEAN PLATELET VOLUME 10.4 fl (9.6-12.3); MONO % 11.8 % (3.0-9.0); NEUT # 5.9 10*3/uL (2.3-7.9); NEUT % 69.6 % (47.0-73.0); PLATELET COUNT AUTOMATED 288 10*3/uL (130-400); RED BLOOD COUNT 4.02 10*6/uL (4.50-5.90); RED CELL DISTRI WIDTH 14.1 % (0-14.5); WHITE BLOOD COUNT 8.5 10*3/uL (4.8-10.8)
[2020-01-19 17:50] LABS: INTERNATIONAL NORM RATIO 1.1 (2.0-3.5)
[2020-01-19 17:59] LABS: ALBUMIN 3.5 gm/dl (3.1-4.5); ALKALINE PHOSPHATASE 90 U/L (45-117); BUN 30 mg/dl (7-24); CHLORIDE 107 mmol/L (98-107); CREATININE 1.95 mg/dL (0.70-1.30); POTASSIUM 4.2 mmol/L (3.5-5.1); SGOT/AST 25 IU/L (3-35); SGPT/ALT 28 U/L (12-78); SODIUM 137 mmol/L (136-145); TOTAL PROTEIN 7.8 gm/dL (6.4-8.2)
[2020-01-19 18:00] VITALS: BP 150/66
[2020-01-19 18:02] LABS: TROPONIN I < 0.015 ng/ml (<0.045)
--- NOTE | 2020-01-19 18:15 | NUR ---
PT REQUESTIMG AGAIN TO GET UP TO BEDSIDE COMMODE. 3 ASSISTS TO BEDSIDE COMMODE PT AGAIN STATES UNABLE TO GO. PT CONTINUES TO REFUSED CATH OR URINAL.
[2020-01-19] MEDS ORDERED: CARAFATE1 G1 PO (18:24)
[2020-01-19] MEDS ORDERED: PRILOSEC20 M1 PO (18:24)
[2020-01-19] MEDS ORDERED: MINIPRESS2 M1 PO (18:25)
[2020-01-19] MEDS ORDERED: ZOFRAN4 MG PO (18:25)
[2020-01-19] MEDS ORDERED: CLARITIN LIQUI-10 MG PO (18:25)
[2020-01-19] MEDS ORDERED: EFFER-K10 MEQ PO (18:26)
[2020-01-19] MEDS ORDERED: ZANAFLEX4 M1 PO (18:26)
[2020-01-19] MEDS ORDERED: LISINOPRIL20 MG PO (18:26)
[2020-01-19] MEDS ORDERED: GAVISCON ES TA1 EACH PO (18:27)
[2020-01-19] MEDS ORDERED: LIPITOR20 MG PO (18:28)
[2020-01-19] MEDS ORDERED: ALBUTEROL0.63 MG/3 INH (18:28)
[2020-01-19] MEDS ORDERED: NEURAPTINE1 GM PO (18:28)
[2020-01-19] MEDS ORDERED: CYPROHEPTADINE H4 M1 PO (18:29)
[2020-01-19] MEDS ORDERED: TOFRANIL25 MG PO (18:29)
--- NOTE | 2020-01-19 18:35 | NUR ---
THIS NURSE HELPED THE PATIENT TO THE BEDSIDE COMMODE. WHILE STANDING THERE HE MISSED THE COMMODE AND VOIDED DOWN BILATERAL LEGS AND ONTO THE FLOOR. I HAD TO CALL FOR HELP TO GET THE PATIENT BACK INTO BED HE WAS SHAKY ON HIS LEGS.
--- NOTE | 2020-01-19 18:59 | NUR ---
PT REFUSED EKG.JACKIE DAILY NOIFIED.
--- NOTE | 2020-01-19 19:00 | NUR ---
3 ASSISTS TO PTS ROOM TO ASSIST TO BEDSIDE COMMODE AGAIN STATES UNABLE TO URINATE.
[2020-01-19 19:37] VITALS: BP 150/64
--- NOTE | 2020-01-19 19:38 | NUR ---
PT REFUSED IV DID DRINK OJ. JACKIE DAILY NOTIFIED.
--- NOTE | 2020-01-19 19:51 | NUR ---
PT REFUSED TO BE LOOKED OVER FOR WOUNDS OR OPEN AREAS PT STATES I DO NOT HAVE ANY WOUNDS OR SORES.
--- NOTE | 2020-01-19 20:23 | NUR ---
Pt drank whole glass of apple juice with packet of sugar at this time.Ok for pt to go to floor.
[2020-01-19 20:30] VITALS: BP 149/88
--- NOTE | 2020-01-19 20:30 | NUR ---
A 64, admitted to 5E, under the services of GERA Banks DO with a diagnosis of GENERALIZED WEAKNESS, UNABLE TO AMBULATE. Chief complaint is LEG PAIN. Patient arrived via ambulance from ER. Monitor applied. Initial assessment completed. Vital signs taken and recorded. GERA BANKS DO notified of admission to the unit. Orders received. See assessment for past medical history, medications and allergies. Patient and/or family oriented to unit. visitation policy reviewed. Clothing/patient valuable form completed. ROLANDO DUGAN
--- NOTE | 2020-01-19 20:30 | NUR ---
PATIENT REFUSED TO HAVE PHOTOS TAKEN OF GROIN EXCORIATION AND REFUSED FOR IT TO BE MEASURED.
--- NOTE | 2020-01-19 20:46 | NUR ---
WHILE TAKING THE PATIENT TO HIS ROOM 510 THE PATIENT VOIDED IN THE BED. HE TOLD US WE WERE MOVING HIM TO HIS INPATIENT BED. ANA WU AND MYSELF HELPED THE RECIEVING NURSE AND AID REMOVE THE WET SHEETS. THE AID SAID SHE WOULD BATH THE PATIENT TO CLEAN HIM UP.
[2020-01-19] MEDS ORDERED: NEURONTIN800 MG PO (20:58)
[2020-01-19] MEDS ORDERED: TRESIBA FL100 UNIT/1 SQ (20:59)
[2020-01-19] MEDS ORDERED: VITAMIN E400 UNI2 PO (21:00)
[2020-01-19] MEDS ORDERED: FLOMAX0.4 MG PO (21:00)
[2020-01-19] MEDS ORDERED: VITAMIN D325 MCG PO (21:02)
[2020-01-19] MEDS ORDERED: NORCO 7.5-3251 EACH PO (21:03)
[2020-01-19] MEDS ORDERED: ALLOPURINOL300 MG PO (21:03)
[2020-01-19] MEDS ORDERED: METOPROLOL SUCC50 M1 PO (21:04)
[2020-01-19] MEDS ORDERED: NORVASC10 MG PO (21:05)
[2020-01-19] MEDS ORDERED: CRESTOR20 M1 PO (21:05)
[2020-01-19] MEDS ORDERED: OZEMPIC0.25 MG/01 SQ (21:07)
[2020-01-19] MEDS ORDERED: GLUCOTROL10 MG PO (21:08)
[2020-01-19] MEDS ORDERED: XANAX1 MG PO (21:09)
--- NOTE | 2020-01-19 21:13 | NUR ---
DR. RIVERA NOTIFIED THAT PATIENT'S HOME MED REQ IS UP TO DATE.
--- NOTE | 2020-01-19 23:42 | NUR ---
PATIENT MEDICATED WITH TYLENOL FOR TEMP OF 101.1. PATIENT STATES HE FEELS FINE. WILL MONTIOR FOR EFFECTIVENESS. CALL LIGHT IN REACH.
[2020-01-20] VITALS: BP 161/74
--- NOTE | 2020-01-20 01:03 | NUR ---
PATIENT'S TEMP IS 192.[address] RIVERA NOTIFIED.
--- NOTE | 2020-01-20 01:12 | NUR ---
PATIENT REFUSES TO DRINK READY CAT CONTRAST.
[2020-01-20 02:17] LABS: BASO # 0.1 10*3/uL (0.0-0.1); BASO % 0.8 % (0.0-1.0); EOS % 0.3 % (1.0-4.0); HEMATOCRIT 35.1 % (42.0-52.0); LYMPH # 1.1 10*3/uL (1.3-4.4); LYMPH % 15.5 % (27.0-41.0); MEAN CELL VOLUME 92.9 fl (80.0-94.0); MEAN CORPUSCULAR HGB 30.2 pg (27.0-31.0); MEAN CORPUSCULAR HGB CONC 32.5 g/dl (33.0-37.0); MEAN PLATELET VOLUME 10.4 fl (9.6-12.3); MONO # 0.7 10*3/uL (0.1-1.0); MONO % 10.1 % (3.0-9.0); NEUT # 5.3 10*3/uL (2.3-7.9); PLATELET COUNT AUTOMATED 254 10*3/uL (130-400); RED BLOOD COUNT 3.78 10*6/uL (4.50-5.90); RED CELL DISTRI WIDTH 14.2 % (0-14.5); WHITE BLOOD COUNT 7.2 10*3/uL (4.8-10.8)
[2020-01-20 02:28] LABS: CREATININE 1.76 mg/dL (0.70-1.30); POTASSIUM 3.6 mmol/L (3.5-5.1)
--- NOTE | 2020-01-20 04:55 | NUR ---
EMILE STANFORDRIVERA Chandler [id number] Please refer to the physician's history and physical for past medical history, comorbid conditions, and allergies. Diagnosis: GENERALIZED WEAKNESS UNABLE TO AMBULATE Awais Score: 14,MODERATE RISK WOUND DESCRIPTIONS: This nurse along with Andie RN went into evaluate patient for skin impairments. This nurse asked if I was able to view his skin for skin impairments patient states "no". No skin assessment was done at this time due to patient refusing/ Surface the patient is resting on: Position Pro SKIN PREVENTION RECOMMENDATION: 1. Pressure redistribution support surface as appropriate 2. Elevate heels 3. Remove boots/TEDS every shift and reapply 4. Head of bed 30 degrees as tolerated 5. Assess nutrition and hydration 6. Manage moisture 7. Avoid the use of containment devices while in bed 8. Use absorptive products on surfaces limit layers of linens on bed 9. Turn and reposition every 1-2 hours in bed and every 1 hour in chair as tolerated 10. Weight shifts every 15 minutes while up in chair 11. Offloading with pillows or device to keep heels elevated off bed 12. Monitor skin at least every shift 13. Inspect under medical devices twice a day
--- NOTE | 2020-01-20 07:39 | NUR ---
PHYSICAL THERAPY Screen and PT eval received will follow thank you Edwina Tapia PT
--- NOTE | 2020-01-20 07:41 | NUR ---
Occupational therapy order received and chart reviewed. Will follow up with patient for completion of an OT evaluation. Thank you. Brielle Zuñiga, OTR/L
[2020-01-20 08:00] VITALS: BP 154/69
--- NOTE | 2020-01-20 10:15 | NUR ---
pt off of floor for ct of chest.
--- NOTE | 2020-01-20 10:41 | NUR ---
PT GIVEN TYLENOL 650 MG PO AT THIS TIME FOR TEMPERATURE OF 101.8 ORALLY. WILL MONITOR FOR EFFECTIVENESS. PT RESTING IN BED. CALL LIGHT IN REACH.
--- NOTE | 2020-01-20 11:43 | NUR ---
SPOKE WITH DR LIVINGSTON IN [facility] REGARDING SPEECH THERAPY CONSULT AND WHETHER OR NOT PHYSICIANS WOULD LIKE SPEECH THERAPIST TO SEE PATIENT AT BEDSIDE. PHYSICIAN STATES THAT IT IS UP TO SPEECH THERAPIST ON WHETHER OR NOT THEY FIND THAT TO BE APPROPRIATE. WILL CALL SPEECH THERAPY BACK REGARDING THIS.
--- NOTE | 2020-01-20 11:44 | NUR ---
ATTEMPTED TO CALL ABBI SPEECH THERAPIST. MESSAGE LEFT. AWAITING CALL BACK.
[2020-01-20 12:00] VITALS: BP 126/51
--- NOTE | 2020-01-20 12:07 | NUR ---
Blending Operator in to talk to patient. Patient states lives at [facility] with AONE. There are NO steps in the home. Physician: Reginald LOVE [facility]: [facility] Home health services: NONE Patient's level of ADLs: MODERATE ASSIST Patient has working utilities: YES DME: NONE Follow-up physician's appointment after d/c: WILL BE MADE BY HOSPITALIST NURSE DIRECTOR ON DISCHARGE Does patient want to access PORTAL?: NO Discharge plan PT LIVES AT HOME ALONE. STATES HE HAS BEEN VERY WEAK AND UNABLE TO CARE FOR SELF. TALKED WITH PT ABOUT GOING TO A SNF FOR REHAB PRIOR TO GOING HOME AND HE IS AGREEABLE. PT GIVEN LIST AND [facility]OSE [facility]. REFERRAL WILL BE MADE. HOSPITALIST NURSE DIRECTOR NOTIFIED WE NEEDED A COVID TEST ON PT. WILL CONTINUE TO FOLLOW. . STACIA BUCKLEY
--- NOTE | 2020-01-20 12:13 | NUR ---
[facility] 12 TEACHER FAXED NEW REFERRAL TO [facility]. WILL NEED PT/OT TO COMPLETE REFERRAL. PATIENT WILL REQUIRE PRECERT.
--- NOTE | 2020-01-20 13:15 | NUR ---
PT GIVEN ORANGE JUICE AT THIS TIME FOR BLOOD SUGAR OF 86. PT STATES THAT HE DOES NOT WANT TO EAT LUNCH AT THIS TIME. WILL MONITOR BLOOD SUGAR.
--- NOTE | 2020-01-20 13:32 | NUR ---
DR JAMA ON FLOOR TO SEE PT. PHYSICIAN NOTIFIED THAT PT HAD A DOSAGE OF TYLENOL AT 1041 AND THAT TEMPERATURE IS NOW 102.1. PHYSICIAN GIVES VERBAL ORDERS TO GIVE AN ADDITIONAL DOSAGE OF TYLENOL 650 PO NOW. DOSAGE GIVEN. WILL MONITOR FOR EFFECTIVENESS. CALL LIGHT IN REACH.
--- NOTE | 2020-01-20 14:02 | NUR ---
SPEECH PATHOLOGY Orders received for MBS. Consulted with patient's nurse Radah as MBS will not be able to be completed until Thursday, 01/22 due to absence of inhouse radiologist in facility today. Clinician questioned if bedside evaluation would be permitted until instrumental exam can be completed. Radha spoke with patient's physician who stated that it was up to this MARBLE INSTALLATION HELPER. Radha reported that patient is currently suspected of having COVID-19 and is being swabbed. Due to suspected virus, and since aspiration cannot be fully ruled out at bedside, patient will be seen for MBS Thursday as appropriate. Radha verbalized understanding. Thank you for this referral. ABBI TOMPKINS [facility]-MARBLE INSTALLATION HELPER
--- NOTE | 2020-01-20 14:32 | NUR ---
PT TEMPERATURE NOW 100.9. COOL COMPRESSES ARE APPLIED TO GROIN, ARMPITS, AND FOREHEAD. WILL CONTINUE TO MONITOR TEMPERATURE. PHYSICIANS AWARE.
[2020-01-20 15:06] LABS: ABG BASE EXCESS -2.8 mmol/L (-2.0-2.0); ARTERIAL BLOOD GAS PH 7.373 (7.35-7.45)
--- NOTE | 2020-01-20 15:43 | NUR ---
CONSULT CALLED TO DR LOCKE PER ORDERS.
--- NOTE | 2020-01-20 15:47 | NUR ---
DR MONTILLA OFFICE CALLED REGARDING CONSULT.
--- NOTE | 2020-01-20 16:48 | NUR ---
PT TRANSFERRED TO [facility] AT THIS TIME. REPORT GIVEN TO ANA RUBI.
--- NOTE | 2020-01-20 17:00 | NUR ---
RECEIVED PATIENT FROM KENY PEREZ. PATIENT IS HARD TO AWAKEN FOR INITIAL ASSESSMENT. PATIENT FALLING ASLEEP MID SENTENCE. PATIENT STATES HE IS TIRED FROM THE XANAX THAT HAS BEEN GIVEN TO HIM MULTIPLE TIMES. PATIENT ASKED HOW OFTEN HE TAKES XANAX AT HOME AND HE SAID " NEEDED". DR. SIMS INFORMED.
[2020-01-20 17:02] VITALS: BP 101/52
--- NOTE | 2020-01-20 17:12 | NUR ---
DR. SIMS NOTIFIED OF ELEVATED D-DIMER. ORDERS RECEIVED TO PLACE PATIENT ON 1MG/KG LOVENOX.
[2020-01-20 20:00] VITALS: BP 130/90
--- NOTE | 2020-01-20 22:20 | NUR ---
BLADDER SCAN HAD 0 RESIDUAL, PATIENT REFUSED STRAIGHT CATHETERIZATION FOR URINE SPECIMENS. WILL WAIT FOR SPECIMENS UNTIL PATIENT IS CONTINENT.
[2020-01-21] VITALS (12 sets, daily range): BP systolic 83–158; BP diastolic 52–79
--- NOTE | 2020-01-21 01:58 | NUR ---
UPDATED ON PATIENT STATUS, TEMPERATURE 102.0 ON COOLING BLANKET. INSTRUCTED TO CHECK VITALS Q1H GIVE TYLENOL AGAIN AT 0430.
[2020-01-21 06:17] LABS: BASO % 0.3 % (0.0-1.0); HEMATOCRIT 39.6 % (42.0-52.0); LYMPH # 2.2 10*3/uL (1.3-4.4); LYMPH % 27.8 % (27.0-41.0); MEAN CELL VOLUME 93.4 fl (80.0-94.0); MEAN CORPUSCULAR HGB 29.7 pg (27.0-31.0); MEAN CORPUSCULAR HGB CONC 31.8 g/dl (33.0-37.0); MONO # 0.8 10*3/uL (0.1-1.0); MONO % 10.3 % (3.0-9.0); NEUT # 4.8 10*3/uL (2.3-7.9); NEUT % 61.5 % (47.0-73.0); PLATELET COUNT AUTOMATED 218 10*3/uL (130-400); RED BLOOD COUNT 4.24 10*6/uL (4.50-5.90); RED CELL DISTRI WIDTH 14.6 % (0-14.5); WHITE BLOOD COUNT 7.8 10*3/uL (4.8-10.8)
[2020-01-21 06:31] LABS: ALBUMIN 2.9 gm/dl (3.1-4.5); CREATININE 2.24 mg/dL (0.70-1.30); POTASSIUM 4.4 mmol/L (3.5-5.1)
--- NOTE | 2020-01-21 10:40 | NUR ---
PT MEDICATED WITH TYLENOL FOR TEMP OF 99.4. CALL LIGHT IN REACH. WILL MONITOR
--- NOTE | 2020-01-21 11:00 | NUR ---
TYLENOL EFFECTIVE, TEMP 98.9. WILL MONITOR
--- NOTE | 2020-01-21 11:59 | NUR ---
COOLING BLANKET OFF AT THIS TIME, TEMP 98.6. WILL MONITOR
--- NOTE | 2020-01-21 12:30 | NUR ---
DR JAMA ON UNIT TO SEE PT, AWARE OF NO IV SITE AT THIS TIME.
--- NOTE | 2020-01-21 15:47 | NUR ---
DR HORAN NOTIFIED OF FAILED IV ATTEMPTS X3 NURSES, 3 ATTEMPTS WITH ULTRASOUND. HE STATES UNDERSTANDING, STATES HE WILL NOTIFY DR JAMA.
--- NOTE | 2020-01-21 15:55 | NUR ---
NURSING INSURANCE APPLICATION INVESTIGATOR NOTIFIED OF DR HORAN REQUEST TO SEE IF ANESTHESIA WILL PUT A LINE IN.
--- NOTE | 2020-01-21 17:48 | NUR ---
ANESTHESIA CAME AND PLACED 20G IN LAC. PT REFUSED CENTRAL LINE, MULTIPLE TIMES.
--- NOTE | 2020-01-21 18:56 | NUR ---
PT MEDICATED WITH TYLENOL FOR TEMP OFF 99.1, WILL MONITOR
--- NOTE | 2020-01-21 21:20 | NUR ---
DR CONNOLLY CONTACTED REGARDING PATIENTS BP OF 83/53, THAT PATIENT IS LETHARGIC, AND LACK OF IV ACCESS. PT IS REFUSING IV ACCESS AT THIS TIME AND STATES THAT HE IS FEELING FINE BUT TIRED AND WANTS TO GO TO BED. OTHER VITALS 97.7, 18 RESPS, HR 110. PER DR CONNOLLY REPEAT BP IN ONE HOUR. RESPS ARE EASY AND NONLABORED. BED IS LOW, CALL LIGHT WITHIN REACH. PT REPEATS INSTRUCTIONS ON HOW TO USE CALL LIGHT AND ANY S/S OF DISTRESS TO LOOK FOR. WILL MONITOR CLOSELY.
[2020-01-22] VITALS (32 sets, daily range): BP systolic 89–140; BP diastolic 45–100
--- NOTE | 2020-01-22 06:06 | NUR ---
PRN TYLENOL ADMINISTERED FOR TEMP OF 100.6 WILL MONITOR FOR EFFECTIVENESS.
--- NOTE | 2020-01-22 06:08 | NUR ---
PT REFUSING LAB DRAWS AT THIS TIME.
[2020-01-22 08:29] LABS: ARTERIAL BLOOD GAS PH 7.371 (7.35-7.45)
[2020-01-22 08:32] LABS: ABG BASE EXCESS -5.1 mmol/L (-2.0-2.0)
--- NOTE | 2020-01-22 08:55 | NUR ---
ABG RESULTS CALLED TO DR. LOCKE, MESSAGE LEFT ON PHONE, RN NOTIFIED.
--- NOTE | 2020-01-22 09:13 | NUR ---
ATTEMPT TO OBTAIN LABS PT REFUSED, NOTIFIED OF NON COMPLAINCE
--- NOTE | 2020-01-22 09:30 | NUR ---
NOTIFIED OF ABGS, AND POSITIVE COVID TEST. NEW ORDER TO INCREASED OXYGEN TO 4L NC.
--- NOTE | 2020-01-22 11:00 | NUR ---
PT TEMP ELAVTED PT REFUSING COOLING BLANKET, EXPLAINED RISK, PT VOICED UNDERSTANDING BUT CONTINUES TO REFUSE
[2020-01-22 12:21] LABS: BASO % 0.2 % (0.0-1.0); EOS # 0.1 10*3/uL (0.0-0.4); EOS % 2.5 % (1.0-4.0); HEMATOCRIT 33.8 % (42.0-52.0); LYMPH # 1.5 10*3/uL (1.3-4.4); LYMPH % 26.7 % (27.0-41.0); MEAN CELL VOLUME 94.7 fl (80.0-94.0); MEAN CORPUSCULAR HGB CONC 31.7 g/dl (33.0-37.0); MEAN PLATELET VOLUME 10.7 fl (9.6-12.3); MONO # 0.4 10*3/uL (0.1-1.0); MONO % 7.1 % (3.0-9.0); NEUT # 3.6 10*3/uL (2.3-7.9); NEUT % 63.1 % (47.0-73.0); PLATELET COUNT AUTOMATED 195 10*3/uL (130-400); RED BLOOD COUNT 3.57 10*6/uL (4.50-5.90); RED CELL DISTRI WIDTH 14.5 % (0-14.5); WHITE BLOOD COUNT 5.7 10*3/uL (4.8-10.8)
[2020-01-22 12:35] LABS: ALBUMIN 2.6 gm/dl (3.1-4.5); CREATININE 3.93 mg/dL (0.70-1.30); POTASSIUM 4.3 mmol/L (3.5-5.1)
--- NOTE | 2020-01-22 13:35 | NUR ---
Patient being started on Remdesivier under Emergency Use Authorization for COVID-19. For adults no requiring mechanical ventilation and/or ECMO: Dose = 200 mg IV on day #1, then 100 mg IV daily for 4 more doses, total 5 days of therapy. Patient's eGFR today is 15, but is likely due to urinary retention and should improve after urinary cath insert per Dr. Barnes. AST = 58 and ALT = 41. Liver enzymes must be obtained daily while receiving Remdesivir. Information in the Fact Sheet for Patients and Parent/Caregivers must be communicated with the patient prior to receiving Remdesivir. This was sent up to the floor and discussed with ANA Vick. Dose should be given over 30-120 minutes in a dedicated IV line. The IV line should be flushed after the dose is administered with at least 30 ml NS. Cayetano Orozco, PharmD
--- NOTE | 2020-01-22 13:58 | NUR ---
16FR CERON CATH INSERTED USING STERILE TECHNIQUE, IMMEDIATE RETURN OF 1300CC CHAN URINE. PT TOLERATED WELL
--- NOTE | 2020-01-22 14:45 | NUR ---
NOTIFIED OF LOW BP
--- NOTE | 2020-01-22 14:50 | NUR ---
NOTIFIED OF BP NEW ORDER TO TRANSFER PT TO AN ICU PATIENT
--- NOTE | 2020-01-22 15:00 | NUR ---
NOTIFIED OF TEMP REMAINING ELEVATED DESPITE TYLENOL, PT REFUSING COOLING BLANKET WILL CONTINUE TO ENCORUGAE COOLING BLANKET
--- NOTE | 2020-01-22 15:47 | NUR ---
PT PLACED ON COOLING BLANKET AND REPOSITIONED FOR COMFORT
--- NOTE | 2020-01-22 16:30 | NUR ---
PT'S RECTAL TEMP REMAIN 102 DESPITE TYLENOL AND COOLING BLANKET UNDER HIM. ICE PACKS PLACED IN AXILLARY AND FEMEROL AREAS.
--- NOTE | 2020-01-22 17:50 | NUR ---
MAP 65. LEVOPHED GTT TITRATED UP TO 6MCG/MIN.
--- NOTE | 2020-01-22 17:55 | NUR ---
WHEN SPEAKING WITH PT I MENTIONED HIS CODE STATUS IS LISTED AT DNCA. PT STATED THAT NO HE WANTS EVERYTHING DONE TO SAVE HIS LIFE AND WANTS TO BE A FULL CODE. I NOTIFIED DR HORAN OF THIS AND HE STATED HE WILL CHANGE THE CODE STATUS TO FULL CODE FOR THIS PT.
--- NOTE | 2020-01-22 20:00 | NUR ---
PT RESTING IN BED WITH EYES CLOSED, AWAKENS WITH EASE BUT DROWSY, ORIENTED. RESP NONLABORED. NO ACUTE DISTRESS NOTED. RIGHT IJ MLC PATENT, DRESSING DRY AND INTACT, LEVOPHED INFUSING ORDERED WITHOUT DIFFICULTY. CERON PATENT FOR CLEAR CHAN URINE. NO S/S OF HYPO/HYPERGLYCEMIA NOTED. MEICATED WITH NORQUETA AT 1934.
--- NOTE | 2020-01-22 20:15 | NUR ---
PT STATES NORCO IS HELPING WITH LEG PAIN, EFFECTIVE.
[2020-01-22 22:02] LABS: ALBUMIN 2.6 gm/dl (3.1-4.5); CREATININE 3.98 mg/dL (0.70-1.30); POTASSIUM 4.4 mmol/L (3.5-5.1); TOTAL PROTEIN 6.1 gm/dL (6.4-8.2)
--- NOTE | 2020-01-22 23:17 | NUR ---
MEDICATED WITH XANAX AND ZOFRAN PER PRN ORDERS FOR C/O INDIGESTION AND ANXIETY.
[2020-01-23] VITALS (85 sets, daily range): BP systolic 94–155; BP diastolic 35–82
--- NOTE | 2020-01-23 04:14 | NUR ---
MEDICATED WITH TYLENOL PER PRN ORDER FOR T 101.1.
--- NOTE | 2020-01-23 05:20 | NUR ---
Upon discharge recommend patient to follow up for wound care in outpatient setting continue current wound care orders at discharging facility.
[2020-01-23 05:55] LABS: BASO % 0.2 % (0.0-1.0); HEMATOCRIT 35.3 % (42.0-52.0); LYMPH % 16.2 % (27.0-41.0); MEAN CELL VOLUME 93.9 fl (80.0-94.0); MEAN CORPUSCULAR HGB 30.1 pg (27.0-31.0); MEAN PLATELET VOLUME 10.9 fl (9.6-12.3); MONO # 0.4 10*3/uL (0.1-1.0); NEUT # 4.5 10*3/uL (2.3-7.9); NEUT % 76.3 % (47.0-73.0); PLATELET COUNT AUTOMATED 194 10*3/uL (130-400); RED BLOOD COUNT 3.76 10*6/uL (4.50-5.90); RED CELL DISTRI WIDTH 14.4 % (0-14.5); WHITE BLOOD COUNT 5.9 10*3/uL (4.8-10.8)
[2020-01-23 06:09] LABS: ALBUMIN 2.7 gm/dl (3.1-4.5); CREATININE 3.48 mg/dL (0.70-1.30); TOTAL PROTEIN 6.3 gm/dL (6.4-8.2)
--- NOTE | 2020-01-23 07:13 | NUR ---
NEED PT/OT EVALS TO COMPLETE REFERRAL. PRECERT IS REQUIRED FOR SNF.
[2020-01-23 08:20] LABS: ARTERIAL BLOOD GAS PH 7.308 (7.35-7.45)
[2020-01-23 08:21] LABS: ABG BASE EXCESS -7.3 mmol/L (-2.0-2.0)
--- NOTE | 2020-01-23 08:47 | NUR ---
SCHOOL STANDARDS COACH INFORMED [facility] OF PATIENTS POSITIVE COVID STATUS. UNTIL PATIENT HAS 2 NEGATIVE TESTINGS, THEY WILL NOT REVIEW REFERRAL. SCHOOL STANDARDS COACH INFORMED CHARGE MASTER SPECIALIST.
--- NOTE | 2020-01-23 14:07 | NUR ---
PHYSICAL THERAPY Eval orders received 01/19/20 pt was admitted to the 5th floor and being ruled out for COVID-19. Intial dx of generalized weakness,inability to ambulate with fever r/o aspiration vs bacterial pneumonia. Pt's swab came back positive for COVID 01/21 with further diagnosis of Acute Resp Failure, Urinary Retention, Sepsis with hypotension upon which central line placed for BP support and pt was at that time per nsg note 01/21 at 14:50 transfered to ICU status patient but moved to room 420 for Droplet/Airborne isolation. Due to change in pt's medical status being transfered to ICCU level status will require new PT eval/orders as appropriate and medically stable, thank you. Edwina Tapia PT
--- NOTE | 2020-01-23 20:00 | NUR ---
LEVOPHED TITRATED DOWN TO 1MCG AT THIS TIME. PATIENT PRESSURE IS ADEQUATE WITH A MAP OF 81.
--- NOTE | 2020-01-23 20:40 | NUR ---
LEVOPHED STOPPED AT THIS TIME. PATIENT PRESSURE MAINTAINING WITH A MAP OF 84 AT THIS TIME. WILL CONTINUE TO MONITOR.
--- NOTE | 2020-01-23 21:45 | NUR ---
XANAX AND NORCO GIVEN PER PT REQUEST TO HELP PATIENT SLEEP AND FOR HIP AND LEG PAIN RATED 6/10. WILL CONTINUE TO MONITOR AND REASSESS. CALL LIGHT WITHIN REACH.
--- NOTE | 2020-01-23 23:19 | NUR ---
XANAX AND NORCO EFFECTIVE.PATIENT RESTING COMFORTABLY IN BED. PATIENT SAYS PAIN HAS BEEN REDUCED TO 2/10 AND HE IS STARTING TO FEEL TIRED AT THIS TIME. CALL LIGHT WITHIN REACH.
[2020-01-24] VITALS (10 sets, daily range): BP systolic 126–147; BP diastolic 49–56
[2020-01-24 06:09] LABS: BASO % 0.2 % (0.0-1.0); EOS % 0.5 % (1.0-4.0); HEMATOCRIT 32.8 % (42.0-52.0); LYMPH # 1.3 10*3/uL (1.3-4.4); LYMPH % 23.3 % (27.0-41.0); MEAN CELL VOLUME 91.4 fl (80.0-94.0); MEAN CORPUSCULAR HGB 29.5 pg (27.0-31.0); MEAN CORPUSCULAR HGB CONC 32.3 g/dl (33.0-37.0); MEAN PLATELET VOLUME 10.7 fl (9.6-12.3); MONO # 0.3 10*3/uL (0.1-1.0); MONO % 5.8 % (3.0-9.0); NEUT # 3.9 10*3/uL (2.3-7.9); NEUT % 69.7 % (47.0-73.0); PLATELET COUNT AUTOMATED 172 10*3/uL (130-400); RED BLOOD COUNT 3.59 10*6/uL (4.50-5.90); RED CELL DISTRI WIDTH 14.3 % (0-14.5); WHITE BLOOD COUNT 5.7 10*3/uL (4.8-10.8)
--- NOTE | 2020-01-24 06:15 | NUR ---
NORCO GIVEN PER PT REQUEST FOR BACK, HIP AND LEG PAIN. PAIN RATED 7/10 AND DESCRIBED A CONSTANT THROBBING PAIN. WILL CONTINUE TO MONITOR.
[2020-01-24 06:36] LABS: ALBUMIN 2.4 gm/dl (3.1-4.5); CREATININE 2.43 mg/dL (0.70-1.30); POTASSIUM 4.8 mmol/L (3.5-5.1); TOTAL PROTEIN 5.9 gm/dL (6.4-8.2)
--- NOTE | 2020-01-24 06:57 | NUR ---
BEATRIZ EFFECTIVE PER PT. CALL LIGHT WITHIN REACH.
--- NOTE | 2020-01-24 07:37 | NUR ---
OT NOTE Occupational therapy order received and chart reviewed. Patient's OT evaluation order initially received on 01/19/2020 when he was admitted to the 5th floor for generalized weakness, inability to ambulate. Pt's COVID19 PRC swab detected positive 01/22/2020 and patient was transferred to ICU status and moved to [facility] with airborne/droplet isolation. OTR will need new orders due to patient's change in medical status and transfer to ICU level care. Thank you. Brielle Zuñiga, OTR/L
--- NOTE | 2020-01-24 07:52 | NUR ---
SPEECH PATHOLOGY Patient unable to undergo MBS as he is in isolation for positive COVID-19. Once medical status permits, this dept. will remain available as indicated. ABBI TOMPKINS MS[facility]-SUPERVISOR COOPERAGE SHOP
--- NOTE | 2020-01-24 08:00 | NUR ---
RN IN TO SEE PATIENT, PATIENT APPEARS TO BE SLEEPING, HAS EYES CLOSED, EASILY AWAKENS TO THIS RNS VOICE. PATIENT C/O BACK PAIN, THIS RN INFORMS PATIENT THAT PAIN MEDICATION WAS JUST GIVEN AT 525, AND IS SCHEDULED EVERY 8HOURS. PATIENT VERBALIZED UNDERSTANDING. PATIENT DENIES WANTING ANYTHING TO EAT FOR BREAKFAST. STATES HE DOESNT FEEL LIKE, BUT IS DENYING NAUSEA/STOMACH PAINS/OR LOSS OF APPETITE. RN REINFORCES THE IMPORTANCE OF FREQUENT REPOSITIONING, AND THE POSSIBILITY OF RELIEVEING BACK PAIN WITH REPOSITIONING TO HIS SIDE. PATIENT VERBALIZES UNDERSTANDING AND AGREES TO REPOSITION. PATIENT HOWEVER, REFUSES TO ASSIST THIS RN IN TURNING HIM. WANTS RN TO PULL HIM OVER. AFTER FREQUENTLY INFORMING PATIENT THAT 1 RN CANNOT TURN HIM ALONE WITHOUT RISK OF INJURY TO RN. PATIENT STILL DOES NOT ASSIST WITH TURNING. PATIENT WAS THEN PUT IN TRENDELENBERG AND WAS SLIDE UPWARD TOWARDS TO TOP OF THE BED TO HELP RELIEVE SOME BACK PAIN INSTEAD OF TURNING TO SIDE. PATIENT STATES THIS HAS ALREADY MADE HIS BACK FEEL BETTER. PATIENT IS DENYING OTHER NEEDS AT THIS TIME, AND HAS ALREADY CLOSED EYES BEFORE RN EXITED ROOM.
--- NOTE | 2020-01-24 08:15 | NUR ---
URINES OBTAINED FROM CERON CATHETER AND SENT TO LAB PER DRS ORDERS.
--- NOTE | 2020-01-24 09:34 | NUR ---
Patient resting quietly,EYES CLOSED with no c/o discomfort. Respirations easy and regular ON 4 LITERS NASAL CANNULA,PULSE OXIMETRY IS CURRENTLY 97%. Vital signs stable. No overt distress. [facility]PER[facility]AINS 99.9 [facility]
--- NOTE | 2020-01-24 09:40 | NUR ---
DR WHELAN IN TO SEE PATIENT, DISCUSSED WITH THIS RN
[2020-01-24 09:47] LABS: CLARITY CLOUDY (CLEAR); COLOR YELLOW (YELLOW)
[2020-01-24 09:48] LABS: BACTERIA 1+; BILIRUBIN NEGATIVE (NEGATIVE); BLOOD 3+ (NEGATIVE); GLUCOSE NEGATIVE (NEGATIVE); KETONE NEGATIVE (NEGATIVE); LEUKO ESTERASE TRACE (NEGATIVE); NITRITE NEGATIVE (NEGATIVE); RBC TNTC rbc/hpf (0-2); UROBILINOGEN 0.2 E.U./dl (0.2-1.0)
--- NOTE | 2020-01-24 10:11 | NUR ---
DR LOCKE IN TO SEE PATIENT, DISCUSSED WITH THIS RN
[2020-01-24 11:03] LABS: ABG BASE EXCESS -4.7 mmol/L (-2.0-2.0); ARTERIAL BLOOD GAS PH 7.314 (7.35-7.45)
--- NOTE | 2020-01-24 11:03 | NUR ---
RADIOLOGIST IN TO OBTAIN CHEST XRAY AT THIS TIME
--- NOTE | 2020-01-24 11:10 | NUR ---
RECIEVED CALL FROM THE [facility] NURSE, SHE STATES THAT SHE WOULD LIKE SOMEONE FROM [facility] TO CALL HER PRIOR TO PATIENT BEING DISCHARGED SO THAT SHE CAN KNOW ANY ISOLATION PRECAUTIONS THAT THE PATIENT WILL BE ON, WELL SOME OTHER QUESTIONS SHE MAY HAVE FOR THE PATIENT PRIOR TO BEING DISCHARGED. OFFICE:[phone] CELL:[phone] CALL OFFICE THURSDAY THROUGH THURSDAY BUSINESS HOURS ONLY SHE STATES TO CALL CELL PHONE ON FRIDAYS AND SHE IS OFF, AND CALL AFTER BUSINESS HOURS.
--- NOTE | 2020-01-24 11:14 | NUR ---
SPOKE WITH DR LOCKE REGARDING BLOOD GAS RESULTS. NO NEW ORDERS GIVEN AT THIS TIME
--- NOTE | 2020-01-24 11:36 | NUR ---
PATIENT AGAIN REFUSING TO EAT. STATES HE JUST DOESNT FEEL LIKE IT. BLOOD SUGAR WAS CHECKED-236. RN EDUCATED PATIENT OF THE IMPORTANCE OF PROPER NUTRITION AND GETTING OVER ILLNESS. PATIENT VERBALIZES RESPONSE BUT CONTINUES TO STATE HE DOES NOT WANT TO EAT. RN WILL CONTINUE TO MONITOR
--- NOTE | 2020-01-24 12:02 | NUR ---
ADDITIONAL CLINICALS FAXED TO [facility], PRE CLAIM DISPUTE SET UP WITH DR SIMS FOR TOMORROW BETWEEN 06-21 OR -3. PRAKASH HOSPITALIST NURSE DIRECTOR INFORMED.
--- NOTE | 2020-01-24 12:38 | NUR ---
DR JAMA IN TO SEE PATIENT, NOW PATIENT IS STATING HE WANTS TO EAT.
--- NOTE | 2020-01-24 12:46 | NUR ---
RN INTO SEE PATIENT, TO TAKE MEAL ORDER AFTER PATIENT TOLD DR JAMA HE WANTED TO ORDER. PATIENT IS NOW STATING HE IS NOT HUNGRY AND DOES NOT WANT TO EAT. STATES HE "HATES THIS PLACE" D/T NOT HAVING PHONE WITHIN REACH. PATIENTS CELL PHONE IS ON THE RIGHT SIDE OF HIM UNDER HIS WRIST AND THE HOSPITAL PHONE IS LAYING ON THE BEDSIDE TABLE WITHIN REACH, WHEN RN INQUIRED ABOUT THIS COMPLAINT, PATIENT BECAME QUIET AND WOULD NOT ANSWER NURSE
--- NOTE | 2020-01-24 12:57 | NUR ---
RUNNING TRAY ORDERED FOR PATIENT DESPITE PATIENT SAYING HE DOES NOT WANT TO EAT
--- NOTE | 2020-01-24 13:02 | NUR ---
SPOKE WITH DR LOCKE REGARDING PATIENT NOT GETING OUT OF BED, STATES THAT PHYSICAL THERAPY SHOULD BE WORKING WITH PATIENT SO THAT HE DOESNT GET TOO DECONDITIONED. INFORMED HIM THAT I RESENT THE CONSULTS AND THEY SHOULD RECIEVE THEM.
--- NOTE | 2020-01-24 13:07 | NUR ---
THIS RN CALLED PT AND MADE AWARE OF NEED TO SEE PATIENT AND BEGIN TO WORK WITH HIM SOON POSSIBLE
--- NOTE | 2020-01-24 14:26 | NUR ---
ASSUMED CARE OF PT. WHEN IN TO ASSESS FOR SHIFT CHANGE, FOUND PT HAD A BOWEL MOVEMENT - MECONIUM LIKE/DARK GREEN IN NATURE. ALSO VERY WEAK AND NEEDED MUCH HELP WITH MOVING. PT/OT IN TO ASSESS PT AT THIS TIME. HELPED THIS NURSE CHANGE HIS LINEN AND DO PERICARE. PT TOLERATED FAIRLY. LABS DRAWN WITH EASE FROM [facility] SITE. ART LINE STILL IN PLACE. PT SET UP FOR DINNER. DID WELL EATING YOGURT ON HIS OWN BUT STATED HE WASN'T HUNGRY AT THIS TIME. ENCOURGED PT TO EAT PREVIOUS NURSE STATED HE DID NOT EAT BREAKFAST OR DINNER. CALL LIGHT IN REACH. WILL MONITOR.
--- NOTE | 2020-01-24 14:30 | NUR ---
Occupational therapy order received and OT evaluation completed in full on the fourth floor. Patient precautions include airborne precautions, fall risk, RIJ, R arterial line, heart monitor, generalized pain, and generalized weakness. Patient complexity is high, [id number]. OTR recommending continued OT treatment and a SNF at discharge. Thank you. Patient was agreeable to participating in an OT evaluation, please see OT eval for further details. Following eval, patient was seen for 15 minutes of 1:1 occupational therapy treatment to maximize safety and independence with ADLs. The physical therapist was present for observation only. Nursing requesting patient participate in self-feeding this date, stating he is on a regular diet. Patient initially declined eating stating "I don't want anything!" but with encouragement was agreeable. Patient was supine in bed with HOB elevated for safety. Patient requesting to eat his yogurt, OTR placed yogurt in patient's right hand and was able to grasp with supervision. Patient used the spoon and self-fed with Mod A for bringing the spoon with his LUE to his mouth. Patient ate approximately half of his yogurt. Patient provided with education on small bites, keeping his eyes open throughout feeding, and min cues for sequencing of task throughout. Patient requesting for his water and with Mod A able to grasp cup bilaterally and bring cup/straw to mouth. No coughing noted. Patient stating he was done eating but wanted food items left on tray near table. Patient demonstrated that he is able to reach across to the L side tray for his yogurt and water cup. Nursing notified of patient's functional status post evaluation and treatment. Patient to continue with POC as able, recommend SNF at discharge. Thank you. Brielle Zuñiga OTR/Jyae
--- NOTE | 2020-01-24 14:30 | NUR ---
PHYSICAL THERAPY Physical Therapy evaluation completed on 4th floor with full evaluation to follow. Recommend physical therapy per plan of care and SNF upon discharge. Thank you for this referral. Edwina Tapia PT
--- NOTE | 2020-01-24 14:34 | NUR ---
OEL CHECKED PATIENTS BENEFITS. PATIENT IS OUT OF NETWORK FOR THE FACILITIES. WILL SPEAK WITH SECOND CUTTER ABOUT A SECOND OPTION. PATIENT WILL STILL BE REQUIRED 2 NEGATIVE TEST PIOR TO ADMISSION TO A SNF.
--- NOTE | 2020-01-24 16:20 | NUR ---
A-LINE REMOVED. TOLERATED WELL. PRESSURE APPLIED FOR AMPLE AMOUNT OF TIME WITH CONTROLLED BLEEDING. PRESSURE DRESSING APPLIED. WILL MONITOR. CALL LIGHT WITHIN REACH.
--- NOTE | 2020-01-24 17:26 | NUR ---
RESTING WITH EYES CLOSED. NO SXS OF DISTRESS, RESPERS 12BPM. NSR 80s PER CM. CALL LIGHT WITHIN REACH.
--- NOTE | 2020-01-24 17:59 | NUR ---
NORCO GIVEN FOR COMAPLAINTS OF BACK PAIN RATED 10/10, ACHING AND CONSTANT. CALL LIGHT IN REACH. BED ALARM ON, WILL MONITOR.
--- NOTE | 2020-01-24 18:43 | NUR ---
NORCO SEEMS EFFECTIVE, PT IS SLEEPING WITHOTU SXS OF DISTRESS. RESPERATIONS EASY AND REGULAR AT 13BPM. HR 87 PER CM, POX 98% ON 4L. CALL LIGHT WITHIN REACH. BED ALARM MAINTAINED.
--- NOTE | 2020-01-24 19:30 | NUR ---
PATIENT CALLED OUT AND STATED HE NEEDED "TURNED". UPON ASSESSMENT PATIENT STATED HE HAD A BOWEL MOVEMENT. WITH MUCH DIFFICULTY TO THIS NURSE AND LITTLE HELP FROM PATIENT WITH REPOSITIONING, MARITA-CARE WAS PROVIDED TO THE BEST OF MY ABILITY. PATIENT CURSED MULTIPLE TIMES DURING TURNING AND STATED THAT IT HURT TOO MUCH TO DO SO. PATIENT EDUCATION PROVIDED, INFORMED THAT INCREASED MOVEMENT WILL DECREASE OVER ALL PAIN AND HELP PREVENT PRESSURE WOUNDS. PATIENT HAD FLAT AFFECT AND BECAME QUIET, NOT INTERESTED IN TEACHING. PATIENT ASLO CURSED AT NURSE WHEN NYSTATIN WAS APPLIED AND TOLD ME TO QUIT, INFORMED IT WAS IMPORTANT TO BE APPLIED. PATIENT DID DRINK SOME FLUIDS AT THIS TIME. VITAL SIGNS STABLE AT THIS TIME, WITH LOW GRADE TEMP NOTED. PATIENT WAS NOTED TO BE COMFORTABLY IN BED PRIOR TO THIS NURSE LEAVING ROOM, PATIENT HAD EYES CLOSED AND SNORING. CALL LIGHT AND PHONE LEFT WITHIN REACH
--- NOTE | 2020-01-24 19:38 | NUR ---
PATIENT ONLY GIVEN 3 UNITS INSTEAD OF 6 UNITS PER SSI. PATIENT HAS NOT HAD ADEQUATE AMOUNT OF FOOD D/T NO APPETITE. WILL CONTINUE TO MONITOR
--- NOTE | 2020-01-24 21:14 | NUR ---
DR.EISENHART CHAMPION AWARE THAT ICU MEDICATIONS ORDERS STILL ACTIVE IN [facility], DOCTOR STATED OK TO D/C. ALSO, INFORMED THAT NO ACTIVE ORDER WAS PLACED FOR CERON THAT WAS PLACED ON 01/21, STATED IT WAS OK TO PUT ORDER ORDER HER NAME.
--- NOTE | 2020-01-24 22:03 | NUR ---
PATIENT MEDICATED WITH RESTORIL FOR C/O INSOMNIA. WILL CONTINUE TO MONITOR
--- NOTE | 2020-01-24 22:35 | NUR ---
PATIENT REPOSITIONED UP IN BED, WITH MINIMAL ASSIST FROM PATIENT, WEDGE PLACED TO LEFT SIDE. PATIENT STATED HE IS VERY COMFORTABLE AT THIS TIME.
[2020-01-25] VITALS: BP 128/62
--- NOTE | 2020-01-25 01:54 | NUR ---
PATIENT YELLING OUT STATED "I NEED YOU TO COME IN HERE AND HELP WITH THESE HOT DOGS. MY LEGS HURT!" WHEN QUESTIONED PATIENT ABOUT THE HOT DOGS HE STATED "I MUST'VE BEEN HALLUCINATING." PATIENT IS AAOX3 AT THIS TIME. PATIENT PROVIDED WITH NORCO FOR C/O BLE PAIN 04/19. WILL MONITOR
--- NOTE | 2020-01-25 02:54 | NUR ---
NORCO APPEARS EFFECTIVE. RESTING QUIETLY IN BED, EYE CLOSED. NO DISTRESS NOTED.
--- NOTE | 2020-01-25 03:33 | NUR ---
PATIENT WAS AGITATED/ANXIOUS AT THIS TIME. MEDICATED WITH XANAX. WILL CONTINUE TO MONITOR
--- NOTE | 2020-01-25 03:50 | NUR ---
PATIENT CALLED OUT. PATIENT NEEDED REPOSITIONED IN BED, FEET TOUCHING BOTTOM. PATIENT WANTED TO KEEP WEDGE ON RIGHT SIDE AT THIS TIME, STATED IT WAS THE MOST COMFROTABLY. WILL CONTINUE TO MONITOR
--- NOTE | 2020-01-25 04:33 | NUR ---
XANAX APPEARS EFFECTIVE. RESTING QUIETLY IN BED, EYE CLOSED. NO DISTRESS NOTED. CALL LIGHT WITHIN REACH
--- NOTE | 2020-01-25 05:20 | NUR ---
PATIENT MEDICATEDW ITH TYLENOL FOR C/O BLE PAIN 12/17. WILL CONTINUE TO MONITOR
--- NOTE | 2020-01-25 05:30 | NUR ---
PATIENT REPOSITIONED UP IN BED. PATIENT WANTS TO REMAIN ON LEFT SIDE. PATIENT DID HELP REPOSITION HIMSELF, WEDGE AND PILLOWS IN PLACE TO HELP WITH POSITIONING. PATIENT IMMEDIATELY FELL ASLEEP AFTERWARDS. WILL CONTINUE TO MONITOR
--- NOTE | 2020-01-25 06:01 | NUR ---
MADE AWARE THAT PATIENT CONTINUOUSLY YELLS OUT WITH PAIN AND NORCO NOT AVAILABLE UNTIL 1000. STATED OK TO GIVE X1 DOSE OF 2MG IV MORPHINE.
[2020-01-25 06:08] LABS: EOS # 0.1 10*3/uL (0.0-0.4); HEMATOCRIT 30.5 % (42.0-52.0); LYMPH # 1.2 10*3/uL (1.3-4.4); LYMPH % 22.9 % (27.0-41.0); MEAN CELL VOLUME 92.7 fl (80.0-94.0); MEAN CORPUSCULAR HGB 29.5 pg (27.0-31.0); MEAN CORPUSCULAR HGB CONC 31.8 g/dl (33.0-37.0); MEAN PLATELET VOLUME 11.9 fl (9.6-12.3); MONO # 0.3 10*3/uL (0.1-1.0); MONO % 6.8 % (3.0-9.0); NEUT # 3.5 10*3/uL (2.3-7.9); NEUT % 69.1 % (47.0-73.0); PLATELET COUNT AUTOMATED 158 10*3/uL (130-400); RED BLOOD COUNT 3.29 10*6/uL (4.50-5.90); RED CELL DISTRI WIDTH 14.5 % (0-14.5)
--- NOTE | 2020-01-25 06:15 | NUR ---
X1 DOSE OF 2MG IV MORPHINE GIVEN FOR BLE PAIN 04/19. WILL MONITOR
--- NOTE | 2020-01-25 06:20 | NUR ---
TYLENOL NOT EFFECTIVWE FOR BLE PAIN
[2020-01-25 06:23] LABS: ALBUMIN 2.4 gm/dl (3.1-4.5); POTASSIUM 5.1 mmol/L (3.5-5.1); TOTAL PROTEIN 5.8 gm/dL (6.4-8.2)
[2020-01-25 06:26] LABS: CREATININE 2.11 mg/dL (0.70-1.30)
[2020-01-25 08:00] VITALS: BP 123/69
--- NOTE | 2020-01-25 08:12 | NUR ---
CALL CENTER OPERATOR FAXED REFERRAL TO [facility] FOR REVIEW.
--- NOTE | 2020-01-25 08:45 | NUR ---
PT MEDICATED WITH PRN NORCO FOR C/O RIGHT HIP PAIN. PT RATES PAIN 10/10 AND IS YELLING OUT FOR HELP BEFORE BEING MEDICATED. WILL MONITOR.
--- NOTE | 2020-01-25 09:30 | NUR ---
PRN NORCO APPEARS EFFECTIVE. PT RESTING QUIETLY IN BED.
--- NOTE | 2020-01-25 10:33 | NUR ---
GRASSROOTS ORGANIZER FAXED REFERRAL TO [facility] FOR REVIEW.
[2020-01-25 12:00] VITALS: BP 147/63
--- NOTE | 2020-01-25 12:09 | NUR ---
SURVEY TECHNOLOGIST RECEIVED CALL FROM [employer], THEY ARE REVIEWING FOR CRITERIA.
--- NOTE | 2020-01-25 14:08 | NUR ---
PRECERT IS BEING STARTED FOR Novint. RN HOSPITALIST COORDINATOR HAS BEEN NOTIFIED.
--- NOTE | 2020-01-25 14:15 | NUR ---
OT NOTE Patient was seen this date for 1:1 OT treatment to maximize patient independence and safety with ADLs and transfers. Nursing gave approval to see patient this date. Physical therapist present for observation only. Patient on 4LO2 to start maintaining 97-98% and HR 77 bpm, RR 14. He was A&Ox name and place, intermittent to time. Patient was lethargic requiring max verbal and tactile cues for participation and maintaining open eyes 75% of the treatment. Patient declining UE dressing and self-feeding tasks. Patient completed fash washing with Mod A with lifting the wash cloth in the LUE to his face and for thoroughness. Patient then participated in bilateral AAROM 1x5 shoulder flexion to 90-100 degrees, elbow flex/extion to WFL, and gross grasping to restore UE strength for optimal functioning. Patient provided with increased RBs due to fatigue. Patient's bedding soiled with B&B, nursing into room to assist and assess. Patient performed rolling in bed with Mod-Max Ax3 with Max A for toileting hygiene and clothing management. Patient demonstrated improved participation with rolling this date. During rolling, patient yelling in pain stating "ow, my hip!" and "I hate my life." Nursing present for patient's comments. At conclusion, nursing decreased O2 demand to 3L, patient at 97% SpO2 and HR 70-80 bpm. Patient supine in bed, sleeping, all needs within reach, bed lowered at conclusion of OT treatment. Nursing aware of patient location and functional status post exercise. Airborne precautions maintained throughout. Patient to continue with OT treatment and POC as able, recommend d/c to SNF. Brielle Zuñiga, OTR/L
--- NOTE | 2020-01-25 14:20 | NUR ---
PHYSICAL THERAPY Pt semi-lethargic, opens eyes to name and commands, difficulty maintaining EO unless verbal/tactile stimuli given. Pt c/o B hip pain unable to rate per nsg was given medication earlier. Supine exercises BLE P-AAROM 1 x 5 AP's,HS,Hip Abd/Add,SAQ's pt requiring verbal/tactile stim to keep EO and assist with excercise 75% of time with intermittent rest periods t/o. Pt incontinent of bowel and with nsg assist performed bed change/linen with hygiene care. Rolling R and L pt able to use UE to reach and bend knees to initiate/assist with rolling Mod-Max assist x 2 for 3 attempts to each side with 3rd person for hygiene care/sheets. Pt stating with rolling/hygiene care "I hate my life" nsg present and aware of comments. Encouraged pt that he was moving better than yesterdays session. Deferred further activity after rolling activity due to fatigue/pain. Vitals stable continues on 4L 02 HR 70-80's, 02 sats 96-97%, RR 12-20 t/o activity. Pt positioned for comfort heels off bed for pressure relief call fleming in reach bed alarm engaged. Improved mobility with rolling pt initiating activity, improved BLE AAROM at BLE hips/knees by 10-15 degress with excercise. Easily fatigued but vitals stable. Cont per POC and cont to recomend SNF at discharge. Edwina Tapia PT
--- NOTE | 2020-01-25 15:09 | NUR ---
PT HAS INFREQUENT DRY COUGH. NO SPUTUM TO OBTAIN.
[2020-01-25 16:00] VITALS: BP 126/66
--- NOTE | 2020-01-25 18:00 | NUR ---
PT REFUSES FOOD AND DENIES APPETITE. RUNNING TRAY ORDERED.
--- NOTE | 2020-01-25 19:08 | NUR ---
24 HR CHART CHECK COMPLETE.
[2020-01-25 20:00] VITALS: BP 105/61
--- NOTE | 2020-01-25 20:00 | NUR ---
PT IS AWAKE AND RESTING IN BED AT THIS TIME. NC IS LAYING ON THE FLOOR AND NOT IN USE, PATIENTS PULSE OX 95%. PT PLACED BACK ON 3L PER ORDER. NO C/O VOICED. RESPS ARE EASY AND NONLABORED. BED IS LOW, CALL LIGHT WITHIN REACH. WILL CONTINUE TO MONITOR.
[2020-01-26] VITALS (53 sets, daily range): BP systolic 86–138; BP diastolic 44–96
--- NOTE | 2020-01-26 03:27 | NUR ---
PT ASLEEP IN BED AT THIS TIME. VITALS WNL, RESPS EASY AND NONLABORED. BED IS LOW, CALL LIGHT WITHIN REACH.
--- NOTE | 2020-01-26 04:48 | NUR ---
PT MEDICATED WITH PRN TYLENOL FOR RECTAL TEMP OF 99.5. WILL MONITOR FOR EFFECTIVENESS.
[2020-01-26 05:37] LABS: BASO % 0.2 % (0.0-1.0); EOS % 0.2 % (1.0-4.0); HEMATOCRIT 26.3 % (42.0-52.0); LYMPH # 0.5 10*3/uL (1.3-4.4); LYMPH % 8.9 % (27.0-41.0); MEAN CELL VOLUME 91.3 fl (80.0-94.0); MEAN CORPUSCULAR HGB 29.5 pg (27.0-31.0); MEAN CORPUSCULAR HGB CONC 32.3 g/dl (33.0-37.0); MEAN PLATELET VOLUME 11.6 fl (9.6-12.3); MONO # 0.5 10*3/uL (0.1-1.0); MONO % 8.5 % (3.0-9.0); NEUT # 4.3 10*3/uL (2.3-7.9); NEUT % 81.1 % (47.0-73.0); PLATELET COUNT AUTOMATED 172 10*3/uL (130-400); RED BLOOD COUNT 2.88 10*6/uL (4.50-5.90); RED CELL DISTRI WIDTH 14.3 % (0-14.5); WHITE BLOOD COUNT 5.3 10*3/uL (4.8-10.8)
[2020-01-26 05:43] LABS: ALBUMIN 2.3 gm/dl (3.1-4.5); CREATININE 2.3 mg/dL (0.70-1.30); POTASSIUM 5.7 mmol/L (3.5-5.1); TOTAL PROTEIN 5.7 gm/dL (6.4-8.2)
--- NOTE | 2020-01-26 08:57 | NUR ---
DR. SIMS NOTIFIED OF PT'S LOW BLOOD PRESSURE.
--- NOTE | 2020-01-26 09:38 | NUR ---
NURSING EDUCATION SPECIALIST FAXED UPDATES TO [facility].
[2020-01-26 09:55] LABS: ABG BASE EXCESS -3.6 mmol/L (-2.0-2.0); ARTERIAL BLOOD GAS PH 7.424 (7.35-7.45)
--- NOTE | 2020-01-26 11:00 | NUR ---
PATIENT ALERT AND ORIENTED TO PERSON AND PLACE. VERY DROWSY. VERY GRUFF. LUNGS DIMINISHED. POX 97% 3LNC. RIJ MLC INTACT. DRESSING CHANGED. BLOOD PRESSURE 115/96. IVF BOLUS STARTED PER ONE TIME ORDER FROM .
--- NOTE | 2020-01-26 11:15 | NUR ---
BLOOD PRESSURE 88/54 MAP67. LEVOPHED STARTED AT 4MIC.
--- NOTE | 2020-01-26 11:45 | NUR ---
BLOOD PRESSURE 99/55 MAP 69 LEVOPHED INCREASED TO 5 BELLA.
--- NOTE | 2020-01-26 13:55 | NUR ---
[facility] IS NOW PENDING FOR LESLEE CARLIN
--- NOTE | 2020-01-26 14:15 | NUR ---
OFFICE NOTIFIED OF NEW CONSULT ORDER.
--- NOTE | 2020-01-26 14:30 | NUR ---
OT NOTE OTR attempted to see patient this PM for OT treatment. However, per chart review, patient's BP has decreased and was having an art line placed upon arrival. Will follow up with patient at a later date when medically appropriate for an OT eval. Thank you. Brielle Zuñiga, OTR/Jaye
--- NOTE | 2020-01-26 14:35 | NUR ---
PHYSICAL THERAPY Attempted to see pt at the bedside however per nsg notes pt with low BP and started back on BP support meds, also art line being placed to monitor BP deferred therapy at this time will follow as/if medically appropriate. Edwina Tapia PT
--- NOTE | 2020-01-26 15:00 | NUR ---
PATIENT ALLOWED RN TO PLACE DOBHOFF FEEDING TUBE IN LEFT NARE. THEN PATIENT WAS CONFUSED TALKING ABOUT TAKING THE EGGS OUT OF THE OVEN. HE BECAME COMBATIVE WITH RN. THEN WAS YELLING TO TAKE IT OUT. WHEN RN ASKED WHAT HE WANTED TAKEN OUT HE WAS YELLING "I DONT KNOW. JUST TAKE IT OUT. TAKE THEM EGGS OUT OF THE OVEN." CALLED . SOFT BILATERAL WRIST RESTRAINTS PLACED.
--- NOTE | 2020-01-26 15:32 | NUR ---
PATIENT MEDICATED WITH ATIVAN 1MG IV PER ONE TIME ORDER FOR AGITATION. WILL CONTINUE TO MONITOR.
[2020-01-26 16:23] LABS: BILIRUBIN NEGATIVE (NEGATIVE); BLOOD 3+ (NEGATIVE); CLARITY SL CLOUDY (CLEAR); COLOR YELLOW (YELLOW); GLUCOSE NEGATIVE (NEGATIVE); KETONE NEGATIVE (NEGATIVE); LEUKO ESTERASE NEGATIVE (NEGATIVE); NITRITE NEGATIVE (NEGATIVE); SPECIFIC GRAVITY 1.025 (1.005-1.030); UROBILINOGEN 0.2 E.U./dl (0.2-1.0)
[2020-01-26 16:25] LABS: BACTERIA 1+; HYALINE CAST 16-20; RBC TNTC rbc/hpf (0-2)
--- NOTE | 2020-01-26 20:05 | NUR ---
Patient drowsy, when asked if he was in pain, after a couple of tries, he stated yes. Patient then begins to tell me he wants to go home, I explained to him his illness, and he just starts yelling he wants to go home. When asked if he wants anything else, he will not answer, when asked again, he yells no!! Michellent left in view of staff on camera, in which the vital signs can barely be seen. In need of new camera for patient on levophed!
--- NOTE | 2020-01-26 20:41 | NUR ---
24 HR chart check completed.
--- NOTE | 2020-01-26 21:07 | NUR ---
Patient states the [employer] is working for pain, I told the patient he had a phone call from his gf Zora, and she didnt have the password, He stated it was ok to give it to her.
--- NOTE | 2020-01-26 22:26 | NUR ---
Scanned @ 22:26, given @2300- Tylenol given for a temp of 100.9, continous monitor.
--- NOTE | 2020-01-26 23:30 | NUR ---
Patient adjusted in bed, with no help from the patient. He moaned, but denied any needs at this time. Patient very gruff when asked questions, yells he doesnt want anything.
[2020-01-27] VITALS (78 sets, daily range): BP systolic 74–117; BP diastolic 38–76
--- NOTE | 2020-01-27 03:40 | NUR ---
Notified Dr. Kurtz of patients bp low with a map of 63, and have titrated levophed up to 12mcg. Also the patient has 0 output since 10pm, no urine in the parkinson. Patient opens eyes, but doesnt respond to questions, but does moan with moved in bed. New orders received. Monitoring on camera, what I am able to see.
--- NOTE | 2020-01-27 05:10 | NUR ---
Updated Dr. Kurtz on patient not having any urine in parkinson after bolus, and patients map is around 68-70 on 14mcg of Levophed, was titrated down to 12mcg. Patient more awake, moans out and opens both eyes. Parkinson was also flushed.
[2020-01-27 05:36] LABS: CREATININE 4.43 mg/dL (0.70-1.30); TOTAL PROTEIN 4.9 gm/dL (6.4-8.2)
[2020-01-27 05:39] LABS: POTASSIUM 6.1 mmol/L (3.5-5.1)
--- NOTE | 2020-01-27 05:44 | NUR ---
Critical lab results called to Dr. Kurtz.
--- NOTE | 2020-01-27 05:54 | NUR ---
EMILE STANFORDRIVERA Arteaga [id number] Please refer to the physician's history and physical for past medical history, comorbid conditions, and allergies. Diagnosis: GENERALIZED WEAKNESS UNABLE TO AMBULATE Awais Score: 13,MODERATE RISK WOUND DESCRIPTIONS: Nurse caring for patient Corina RN states areas to bilateral groin is red and blanchable at times of assessment. No drainage noted. No open areas at time of assessment. Surface the patient is resting on: Position Pro SKIN PREVENTION RECOMMENDATION: 1. Pressure redistribution support surface as appropriate 2. Elevate heels 3. Remove boots/TEDS every shift and reapply 4. Head of bed 30 degrees as tolerated 5. Assess nutrition and hydration 6. Manage moisture 7. Avoid the use of containment devices while in bed 8. Use absorptive products on surfaces limit layers of linens on bed 9. Turn and reposition every 1-2 hours in bed and every 1 hour in chair as tolerated 10. Weight shifts every 15 minutes while up in chair 11. Offloading with pillows or device to keep heels elevated off bed 12. Monitor skin at least every shift 13. Inspect under medical devices twice a day WOUND TREATMENT RECOMMENDATIONS: Please continue nystatin powder to bilateral groins.
[2020-01-27 05:56] LABS: MEAN CORPUSCULAR HGB 29.9 pg (27.0-31.0); MEAN CORPUSCULAR HGB CONC 31.6 g/dl (33.0-37.0); RED BLOOD COUNT 2.01 10*6/uL (4.50-5.90); RED CELL DISTRI WIDTH 14.6 % (0-14.5); WHITE BLOOD COUNT 11.8 10*3/uL (4.8-10.8)
[2020-01-27 06:04] LABS: MEAN CELL VOLUME 94.5 fl (80.0-94.0)
[2020-01-27 06:05] LABS: PLATELET COUNT AUTOMATED 290 10*3/uL (130-400)
--- NOTE | 2020-01-27 06:15 | NUR ---
Notified Dr. Kurtz of critical H&H results of 6 and 19. New order to transfuse 2 units.
[2020-01-27 06:31] LABS: BURR CELLS FEW; OVALOCYTES FEW; PLATELET SUFFICIENCY NORMAL (NORMAL); TOTAL CELLS COUNTED 100 #CELLS
--- NOTE | 2020-01-27 08:00 | NUR ---
PATIENT VERY LETHARGIC. MOANS WITH REPOSITIONING. COLOR DUSKY. 02 3LNC POX 99%. ST PER CM-RATE LOW 100'S. RHONCHI NOTED THROUGHOUT. RR LABORED. CERON PATENT AND DRAINING SCANT URINE.
[2020-01-27 08:15] LABS: ABG BASE EXCESS -9.3 mmol/L (-2.0-2.0); ARTERIAL BLOOD GAS PH 7.335 (7.35-7.45)
--- NOTE | 2020-01-27 09:39 | NUR ---
ATHLETIC FIELD CUSTODIAN FAXED UPDATES TO [facility].
--- NOTE | 2020-01-27 10:00 | NUR ---
BEV ANESTHESIA HERE TO INTUBATE PT. #8ETT 26 LIP. SEDATED PER ANESTHESIA. LEFT BRACHIAL ART LINE INSERTED. LEVOPHED DBL STRENGTH INFUSING 17MICS.
--- NOTE | 2020-01-27 10:35 | NUR ---
PRECERT HAS BEEN OBTAINED FOR RAEGAN. IT IS GOOD 3 DAYS FROM TODAY. AUDITOR APPRAISER NOTIFIED [facility] THE PATIENT IS BEING INTUBATED.
--- NOTE | 2020-01-27 11:15 | NUR ---
OT NOTE Per discussion with the nurse this AM, patient has been intubated. Will discharge patient from OT caseload due to his decline in medical/functional status. Will need new orders when medically appropriate for occupational therapy. Thank you. Brielle Zuñiga OTR/L
--- NOTE | 2020-01-27 11:19 | NUR ---
PHYSICAL THERAPY Per nurse and MD notes pt with decline in respiratory status and is now intubated on mechanical vent. Will cancel therapy at this time will require new orders for therapy once patient medicaly appropriate/stable thank you. Edwina Tapia PT
[2020-01-27 13:37] LABS: ABG BASE EXCESS -10.8 mmol/L (-2.0-2.0); ARTERIAL BLOOD GAS PH 7.273 (7.35-7.45)
--- NOTE | 2020-01-27 14:30 | NUR ---
HERE STATES PATIENT NEEDS TO BE TRANSFERRE FOR CCRT. AWARE.
[2020-01-27 16:09] LABS: ABG BASE EXCESS -9.8 mmol/L (-2.0-2.0); ARTERIAL BLOOD GAS PH 7.269 (7.35-7.45)
--- NOTE | 2020-01-27 17:32 | NUR ---
REPORT GIVEN TO AIDA PEREZ AT [facility].
--- NOTE | 2020-01-27 18:05 | NUR ---
PATIENT TRANSFERRED TO [facility] VIA [facility]. ALL PERSONAL BELONGINGS SENT WITH [facility]. TRANSFER PACKET SENT WITH [facility] [employer]. NEXT OF KIN MEME AND BROTHER AYDEN NOTIFIED OF TRANSFER.
--- NOTE | 2020-01-30 07:26 | NUR ---
MILK DRIVER NOTIFIED [facility] OF PATIENT BEING TRANSFERRED TO ANOTHER FACILITY.
== END 2020-01-27 18:05 | disposition short-term general hospital (02) | DRG 871 ==
LOC: ED 16:46 → 4E 19:37 → EDHOLD 19:37 → 5E 19:37 → 4E 01-20 16:53 → ICCU 01-27 11:51
PROVIDERS: Internal Medicine; Internal Medicine Critical Care Medicine; Internal Medicine Nephrology; Physician Assistant; ADMIT Family Medicine
PROC: 02HV33Z Insertion of Infusion Device into Superior Vena Cava, Percutaneous Approach (ICD-10-PCS; principal; 2020-01-22)
PROC: B548ZZA Ultrasonography of Superior Vena Cava, Guidance (ICD-10-PCS; principal; 2020-01-22)
PROC: 03HY32Z Insertion of Monitoring Device into Upper Artery, Percutaneous Approach (ICD-10-PCS; 2020-01-23)
PROC: 4A133B1 Monitoring of Arterial Pressure, Peripheral, Percutaneous Approach (ICD-10-PCS; 2020-01-23)
PROC: 4A133J1 Monitoring of Arterial Pulse, Peripheral, Percutaneous Approach (ICD-10-PCS; 2020-01-23)
PROC: 03HY32Z Insertion of Monitoring Device into Upper Artery, Percutaneous Approach (ICD-10-PCS; 2020-01-26)
PROC: 4A133J1 Monitoring of Arterial Pulse, Peripheral, Percutaneous Approach (ICD-10-PCS; 2020-01-26)
PROC: 4A133B1 Monitoring of Arterial Pressure, Peripheral, Percutaneous Approach (ICD-10-PCS; 2020-01-26)
PROC: 0BH18EZ Insertion of Endotracheal Airway into Trachea, Via Natural or Artificial Opening Endoscopic (ICD-10-PCS; 2020-01-27)
PROC: 5A1935Z Respiratory Ventilation, Less than 24 Consecutive Hours (ICD-10-PCS; 2020-01-27)
PROC: 30233N1 Transfusion of Nonautologous Red Blood Cells into Peripheral Vein, Percutaneous Approach (ICD-10-PCS; 2020-01-27)
DX: A41.9 Sepsis, unspecified organism (principal); U07.1 COVID-19; J12.89 Other viral pneumonia; N17.0 Acute kidney failure with tubular necrosis; E11.10 Type 2 diabetes mellitus with ketoacidosis without coma; R65.21 Severe sepsis with septic shock; J96.01 Acute respiratory failure with hypoxia; D68.69 Other thrombophilia; K92.2 Gastrointestinal hemorrhage, unspecified; E87.2 Acidosis; Z68.41 Body mass index [BMI] 40.0-44.9, adult; N18.3 Chronic kidney disease, stage 3 (moderate); D64.9 Anemia, unspecified; F32.9 Major depressive disorder, single episode, unspecified; E78.5 Hyperlipidemia, unspecified; I12.9 Hypertensive chronic kidney disease with stage 1 through stage 4 chronic kidney disease, or unspecified chronic kidney disease; E66.01 Morbid (severe) obesity due to excess calories; M10.9 Gout, unspecified; E11.22 Type 2 diabetes mellitus with diabetic chronic kidney disease; E11.42 Type 2 diabetes mellitus with diabetic polyneuropathy; E11.65 Type 2 diabetes mellitus with hyperglycemia; N40.0 Benign prostatic hyperplasia without lower urinary tract symptoms; E78.00 Pure hypercholesterolemia, unspecified; F41.9 Anxiety disorder, unspecified; G89.29 Other chronic pain; M25.551 Pain in right hip; R26.2 Difficulty in walking, not elsewhere classified; Z91.5 Personal history of self-harm; Z88.8 Allergy status to other drugs, medicaments and biological substances; Z87.891 Personal history of nicotine dependence; Z90.49 Acquired absence of other specified parts of digestive tract; Z82.49 Family history of ischemic heart disease and other diseases of the circulatory system; Z83.6 Family history of other diseases of the respiratory system; Z79.899 Other long term (current) drug therapy; Z79.4 Long term (current) use of insulin

== ENCOUNTER 2020-09-16 10:48 | Observation (INO) | payer OTHER, MEDICAID ==
[2020-09-16] VITALS (7 sets, daily range): BP systolic 128–153; BP diastolic 62–81
[~2020-09-16] VITALS: Ht 182.8 cm; Wt 100.8 kg
[~2020-09-16 10:48] MED LIST changes: +ALBUTEROL0.63 MG/3 INH; +CARAFATE1 G1 PO; +CLARITIN LIQUI-10 MG PO; +CYPROHEPTADINE H4 M1 PO; +EFFER-K10 MEQ PO; +GAVISCON ES TA1 EACH PO; +GLUCOTROL10 MG PO; +LIPITOR20 MG PO; +METOPROLOL SUCC50 M1 PO; +MINIPRESS2 M1 PO; +NEURAPTINE1 GM PO; +NORCO 7.5-3251 EACH PO; +PRILOSEC20 M1 PO; +TOFRANIL25 MG PO; +TRESIBA FL100 UNIT/1 SQ; +VITAMIN D325 MCG PO; +VITAMIN E400 UNI2 PO; +XANAX1 MG PO; +ZANAFLEX4 M1 PO; +ZOFRAN4 MG PO
[2020-09-16 11:19] LABS: BASO # 0.1 10*3/uL (0.0-0.1); EOS # 0.3 10*3/uL (0.0-0.4); EOS % 3.2 % (1.0-4.0); HEMATOCRIT 30.8 % (42.0-52.0); LYMPH # 2.9 10*3/uL (1.3-4.4); LYMPH % 31.3 % (27.0-41.0); MEAN CELL VOLUME 93.3 fl (80.0-94.0); MEAN CORPUSCULAR HGB 29.1 pg (27.0-31.0); MEAN CORPUSCULAR HGB CONC 31.2 g/dl (33.0-37.0); MEAN PLATELET VOLUME 9.2 fl (9.6-12.3); MONO % 10.5 % (3.0-9.0); NEUT % 52.9 % (47.0-73.0); PLATELET COUNT AUTOMATED 492 10*3/uL (130-400); RED CELL DISTRI WIDTH 18.1 % (0-14.5); WHITE BLOOD COUNT 9.3 10*3/uL (4.8-10.8)
[2020-09-16 11:35] LABS: ALBUMIN 2.5 gm/dl (3.1-4.5); ALKALINE PHOSPHATASE 42 U/L (45-117); BUN 41 mg/dl (7-24); CHLORIDE 111 mmol/L (98-107); CREATININE 1.24 mg/dL (0.70-1.30); SGOT/AST 7 IU/L (3-35); SGPT/ALT 13 U/L (12-78); SODIUM 141 mmol/L (136-145); TOTAL PROTEIN 7.3 gm/dL (6.4-8.2)
[2020-09-16] MEDS ORDERED: VITAMIN C500 M8 PO (18:13)
[2020-09-16] MEDS ORDERED: AMLODIPINE BESY10 MG PO (18:13)
[2020-09-16] MEDS ORDERED: ASPIRIN ADULT L81 M1 PO (18:14)
[2020-09-16] MEDS ORDERED: LIPITOR80 MG PO (18:15)
[2020-09-16] MEDS ORDERED: BASAG SOL SC (18:16)
[2020-09-16] MEDS ORDERED: BUTRANS1 EAC3 TD (18:16)
[2020-09-16] MEDS ORDERED: NATURE'S BLEND500 M5 PO (18:17)
[2020-09-16] MEDS ORDERED: DEPAKOTE250 MG PO (18:19)
[2020-09-16] MEDS ORDERED: CHLORHEXIDINE PO (18:19)
[2020-09-16] MEDS ORDERED: DEPAKOTE500 MG PO (18:20)
[2020-09-16] MEDS ORDERED: DULCOLAX STOOL100 M1 PO (18:20)
[2020-09-16] MEDS ORDERED: DULCOLAX10 M1 R (18:21)
[2020-09-16] MEDS ORDERED: DULCOLAX5 M1 PO (18:22)
[2020-09-16] MEDS ORDERED: AVODART0.5 M1 PO (18:23)
[2020-09-16] MEDS ORDERED: CYMBALTA60 MG PO (18:23)
[2020-09-16] MEDS ORDERED: IRON325 M3 PO (18:24)
[2020-09-16] MEDS ORDERED: ROBITUSSIN5 ML PO (18:47)
[2020-09-16] MEDS ORDERED: IBU600 M1 PO (18:48)
[2020-09-16] MEDS ORDERED: MEGACE 40400 MG/10 PO (18:50)
[2020-09-16] MEDS ORDERED: MOM30 M1 PO (18:51)
[2020-09-16] MEDS ORDERED: DAILY VITE1 EACH PO (18:51)
[2020-09-16] MEDS ORDERED: NITROSTAT0.4 MG PO (18:52)
[2020-09-16] MEDS ORDERED: PROVENTIL HFA6.7 GM INH (18:53)
[2020-09-16] MEDS ORDERED: TYLENOL EXTRA500 M2 PO (18:54)
[2020-09-16] MEDS ORDERED: FLOMAX0.4 MG PO (18:54)
[2020-09-16] MEDS ORDERED: XANAX0.25 MG PO (18:56)
[2020-09-16] MEDS ORDERED: VITAMIN D350 MC2 GT (18:56)
[2020-09-16] MEDS ORDERED: ZINC-220220 MG PO (18:56)
[2020-09-16] MEDS ORDERED: ZOFRAN4 MG PO (18:57)
[2020-09-17] VITALS: BP 151/71
[2020-09-17 07:04] LABS: BASO # 0.1 10*3/uL (0.0-0.1); BASO % 0.7 % (0.0-1.0); EOS # 0.5 10*3/uL (0.0-0.4); EOS % 3.3 % (1.0-4.0); HEMATOCRIT 32.6 % (42.0-52.0); LYMPH # 3.6 10*3/uL (1.3-4.4); LYMPH % 26.2 % (27.0-41.0); MEAN CELL VOLUME 92.1 fl (80.0-94.0); MEAN CORPUSCULAR HGB 29.1 pg (27.0-31.0); MEAN CORPUSCULAR HGB CONC 31.6 g/dl (33.0-37.0); MEAN PLATELET VOLUME 9.3 fl (9.6-12.3); MONO # 1.2 10*3/uL (0.1-1.0); MONO % 8.8 % (3.0-9.0); NEUT # 8.2 10*3/uL (2.3-7.9); PLATELET COUNT AUTOMATED 573 10*3/uL (130-400); RED BLOOD COUNT 3.54 10*6/uL (4.50-5.90); RED CELL DISTRI WIDTH 18.3 % (0-14.5); WHITE BLOOD COUNT 13.6 10*3/uL (4.8-10.8)
[2020-09-17 07:15] LABS: ALBUMIN 2.6 gm/dl (3.1-4.5); BUN 39 mg/dl (7-24); CHLORIDE 111 mmol/L (98-107); CREATININE 1.19 mg/dL (0.70-1.30); SGOT/AST 9 IU/L (3-35); SGPT/ALT 16 U/L (12-78); SODIUM 141 mmol/L (136-145); TOTAL PROTEIN 7.5 gm/dL (6.4-8.2)
[2020-09-17 07:24] LABS: ALKALINE PHOSPHATASE 49 U/L (45-117)
[2020-09-17 08:00] VITALS: BP 136/64
[2020-09-17 12:00] VITALS: BP 132/75
[2020-09-17 16:00] VITALS: BP 133/65
== END 2020-09-17 18:56 | disposition home or self-care (01) ==
LOC: ED 10:48 → 5E 14:30 → EDHOLD 14:30 → 5E 17:41
PROVIDERS: Social Worker Clinical; Student in an Organized Health Care Education/Training Program; ADMIT Emergency Medicine; ATTEND Emergency Medicine
DX: T14.8XXA Other injury of unspecified body region, initial encounter (principal); M86.18 Other acute osteomyelitis, other site; K66.1 Hemoperitoneum; D64.9 Anemia, unspecified; D47.3 Essential (hemorrhagic) thrombocythemia; E87.8 Other disorders of electrolyte and fluid balance, not elsewhere classified; M53.3 Sacrococcygeal disorders, not elsewhere classified; E11.65 Type 2 diabetes mellitus with hyperglycemia; E78.5 Hyperlipidemia, unspecified; I10 Essential (primary) hypertension; N40.0 Benign prostatic hyperplasia without lower urinary tract symptoms; K59.00 Constipation, unspecified; F33.3 Major depressive disorder, recurrent, severe with psychotic symptoms; I69.331 Monoplegia of upper limb following cerebral infarction affecting right dominant side; F41.1 Generalized anxiety disorder; K21.9 Gastro-esophageal reflux disease without esophagitis; M1A.9XX0 Chronic gout, unspecified, without tophus (tophi); E43 Unspecified severe protein-calorie malnutrition; I25.2 Old myocardial infarction; Z79.4 Long term (current) use of insulin; Z79.82 Long term (current) use of aspirin; Z79.899 Other long term (current) drug therapy; Z86.16 Personal history of COVID-19

== ENCOUNTER 2020-09-21 14:57 | Inpatient (IN) | payer OTHER, MEDICAID ==
[~2020-09-21] VITALS: Ht 175 cm; Wt 106.6 kg
[~2020-09-21 14:57] MED LIST changes: +ASPIRIN ADULT L81 M1 PO; +AVODART0.5 M1 PO; +BASAG SOL SC; +BUTRANS1 EAC3 TD; +CHLORHEXIDINE PO; +DAILY VITE1 EACH PO; +DEPAKOTE250 MG PO; +DEPAKOTE500 MG PO; +DULCOLAX STOOL100 M1 PO; +DULCOLAX10 M1 R; +DULCOLAX5 M1 PO; +IBU600 M1 PO; +IRON325 M3 PO; +LIPITOR80 MG PO; +MEGACE 40400 MG/10 PO; +MOM30 M1 PO; +NATURE'S BLEND500 M5 PO; +NITROSTAT0.4 MG PO; +PROVENTIL HFA6.7 GM INH; +ROBITUSSIN5 ML PO; +TYLENOL EXTRA500 M2 PO; +VITAMIN C500 M8 PO; +VITAMIN D350 MC2 GT; +XANAX0.25 MG PO; +ZINC-220220 MG PO
[2020-09-21 14:58] VITALS: BP 149/72
[2020-09-21 15:59] LABS: BASO % 0.2 % (0.0-1.0); EOS # 0.1 10*3/uL (0.0-0.4); EOS % 0.5 % (1.0-4.0); HEMATOCRIT 29.4 % (42.0-52.0); LYMPH # 2.4 10*3/uL (1.3-4.4); LYMPH % 12.9 % (27.0-41.0); MEAN CORPUSCULAR HGB 29.4 pg (27.0-31.0); MEAN CORPUSCULAR HGB CONC 32.3 g/dl (33.0-37.0); MEAN PLATELET VOLUME 9.9 fl (9.6-12.3); MONO # 0.9 10*3/uL (0.1-1.0); NEUT # 14.9 10*3/uL (2.3-7.9); NEUT % 80.9 % (47.0-73.0); PLATELET COUNT AUTOMATED 535 10*3/uL (130-400); RED BLOOD COUNT 3.23 10*6/uL (4.50-5.90); RED CELL DISTRI WIDTH 18.5 % (0-14.5); WHITE BLOOD COUNT 18.4 10*3/uL (4.8-10.8)
[2020-09-21 16:10] LABS: ACT PARTIAL THROMBO TIME 23.7 SECONDS (20.0-32.1); INTERNATIONAL NORM RATIO 1.1 (2.0-3.5)
[2020-09-21 16:16] LABS: ALBUMIN 2.4 gm/dl (3.1-4.5); ALKALINE PHOSPHATASE 47 U/L (45-117); BUN 46 mg/dl (7-24); CHLORIDE 110 mmol/L (98-107); CREATININE 1.62 mg/dL (0.70-1.30); LIPASE 56 U/L (73-393); POTASSIUM 3.8 mmol/L (3.5-5.1); SGOT/AST 17 IU/L (3-35); SGPT/ALT 23 U/L (12-78); SODIUM 141 mmol/L (136-145); TOTAL PROTEIN 7.3 gm/dL (6.4-8.2)
[2020-09-21 16:32] LABS: TROPONIN I < 0.015 ng/ml (<0.045)
[2020-09-21 17:34] LABS: BILIRUBIN Negative (Negative); BLOOD 3+ (Negative); CLARITY Turbid (Clear); COLOR Yellow (Yellow); GLUCOSE Negative (Negative); KETONE Trace (Negative); LEUKO ESTERASE 3+ (Negative); NITRITE Negative (Negative); PH 5.5 (4.5-8.0); SPECIFIC GRAVITY 1.015 (1.001-1.030); UROBILINOGEN 0.2 E.U./dl (0.0-1.0)
[2020-09-21 17:46] LABS: WBC TNTC wbc/hpf (0-5)
[2020-09-21 18:45] VITALS: BP 142/72
[2020-09-21 20:11] VITALS: BP 148/67
[2020-09-21 22:00] VITALS: BP 154/69
[2020-09-22] VITALS: BP 136/76
[2020-09-22 08:00] VITALS: BP 131/68
[2020-09-22 12:00] VITALS: BP 126/76
[2020-09-22 16:00] VITALS: BP 134/50
[2020-09-22 20:00] VITALS: BP 118/54
[2020-09-23] VITALS: BP 136/68
[2020-09-23 06:10] LABS: BASO # 0.1 10*3/uL (0.0-0.1); BASO % 0.4 % (0.0-1.0); EOS # 0.3 10*3/uL (0.0-0.4); EOS % 1.5 % (1.0-4.0); HEMATOCRIT 31.2 % (42.0-52.0); LYMPH # 3.9 10*3/uL (1.3-4.4); LYMPH % 18.8 % (27.0-41.0); MEAN CELL VOLUME 93.1 fl (80.0-94.0); MEAN CORPUSCULAR HGB CONC 31.1 g/dl (33.0-37.0); MEAN PLATELET VOLUME 10.2 fl (9.6-12.3); MONO # 1.2 10*3/uL (0.1-1.0); MONO % 5.8 % (3.0-9.0); NEUT % 72.9 % (47.0-73.0); PLATELET COUNT AUTOMATED 493 10*3/uL (130-400); RED BLOOD COUNT 3.35 10*6/uL (4.50-5.90); RED CELL DISTRI WIDTH 18.7 % (0-14.5); WHITE BLOOD COUNT 20.6 10*3/uL (4.8-10.8)
[2020-09-23 06:39] LABS: POTASSIUM 3.5 mmol/L (3.5-5.1)
[2020-09-23 06:43] LABS: CREATININE 1.51 mg/dL (0.70-1.30)
[2020-09-23 08:00] VITALS: BP 132/53
[2020-09-23 12:00] VITALS: BP 143/36
[2020-09-23 16:00] VITALS: BP 137/64
[2020-09-23 20:00] VITALS: BP 142/66
[2020-09-24] VITALS: BP 108/67
[2020-09-24 06:13] LABS: BASO # 0.1 10*3/uL (0.0-0.1); BASO % 0.5 % (0.0-1.0); EOS # 0.3 10*3/uL (0.0-0.4); EOS % 1.8 % (1.0-4.0); HEMATOCRIT 30.1 % (42.0-52.0); LYMPH # 3.1 10*3/uL (1.3-4.4); LYMPH % 20.2 % (27.0-41.0); MEAN CORPUSCULAR HGB 29.1 pg (27.0-31.0); MEAN CORPUSCULAR HGB CONC 31.6 g/dl (33.0-37.0); MEAN PLATELET VOLUME 10.3 fl (9.6-12.3); MONO # 0.9 10*3/uL (0.1-1.0); MONO % 6.2 % (3.0-9.0); NEUT # 10.8 10*3/uL (2.3-7.9); NEUT % 70.9 % (47.0-73.0); PLATELET COUNT AUTOMATED 478 10*3/uL (130-400); RED BLOOD COUNT 3.27 10*6/uL (4.50-5.90); RED CELL DISTRI WIDTH 18.4 % (0-14.5); WHITE BLOOD COUNT 15.3 10*3/uL (4.8-10.8)
[2020-09-24 20:00] VITALS: BP 150/69
[2020-09-25] VITALS: BP 139/75
[2020-09-25 06:31] LABS: BASO # 0.1 10*3/uL (0.0-0.1); BASO % 0.4 % (0.0-1.0); EOS # 0.2 10*3/uL (0.0-0.4); EOS % 1.1 % (1.0-4.0); HEMATOCRIT 30.4 % (42.0-52.0); LYMPH # 3.8 10*3/uL (1.3-4.4); MEAN CELL VOLUME 93.8 fl (80.0-94.0); MEAN CORPUSCULAR HGB 29.3 pg (27.0-31.0); MEAN CORPUSCULAR HGB CONC 31.3 g/dl (33.0-37.0); MEAN PLATELET VOLUME 11.2 fl (9.6-12.3); MONO # 1.2 10*3/uL (0.1-1.0); MONO % 6.1 % (3.0-9.0); NEUT # 14.6 10*3/uL (2.3-7.9); NEUT % 72.9 % (47.0-73.0); PLATELET COUNT AUTOMATED 428 10*3/uL (130-400); RED BLOOD COUNT 3.24 10*6/uL (4.50-5.90); RED CELL DISTRI WIDTH 18.7 % (0-14.5)
[2020-09-25 08:00] VITALS: BP 122/78
[2020-09-25 12:00] VITALS: BP 138/74
[2020-09-25 16:00] VITALS: BP 149/63
[2020-09-25 20:00] VITALS: BP 139/63
[2020-09-26] VITALS: BP 137/51
[2020-09-26 06:30] LABS: BUN 28 mg/dl (7-24); CHLORIDE 116 mmol/L (98-107); CREATININE 0.94 mg/dL (0.70-1.30); POTASSIUM 3.2 mmol/L (3.5-5.1); SODIUM 146 mmol/L (136-145)
[2020-09-26 08:00] VITALS: BP 141/76
[2020-09-26] MEDS ORDERED: LEVOFLOXACIN500 MG PO (10:29)
[2020-09-26 12:00] VITALS: BP 153/77
== END 2020-09-26 15:26 | DRG 698 ==
LOC: ED 14:57 → 4E 19:02 → EDHOLD 19:02 → 4E 21:14
PROVIDERS: Emergency Medicine; Student in an Organized Health Care Education/Training Program; ADMIT Internal Medicine; ATTEND Internal Medicine
DX: N13.9 Obstructive and reflux uropathy, unspecified (principal); L89.154 Pressure ulcer of sacral region, stage 4; E43 Unspecified severe protein-calorie malnutrition; G93.41 Metabolic encephalopathy; M46.28 Osteomyelitis of vertebra, sacral and sacrococcygeal region; L02.31 Cutaneous abscess of buttock; A18.01 Tuberculosis of spine; G81.91 Hemiplegia, unspecified affecting right dominant side; S36.892A Contusion of other intra-abdominal organs, initial encounter; F33.9 Major depressive disorder, recurrent, unspecified; N39.0 Urinary tract infection, site not specified; R62.7 Adult failure to thrive; N18.30 Chronic kidney disease, stage 3 unspecified; E78.2 Mixed hyperlipidemia; I25.10 Atherosclerotic heart disease of native coronary artery without angina pectoris; E11.43 Type 2 diabetes mellitus with diabetic autonomic (poly)neuropathy; K31.84 Gastroparesis; M1A.9XX0 Chronic gout, unspecified, without tophus (tophi); K59.09 Other constipation; K21.00 Gastro-esophageal reflux disease with esophagitis, without bleeding; R33.9 Retention of urine, unspecified; E66.9 Obesity, unspecified; E11.69 Type 2 diabetes mellitus with other specified complication; R13.12 Dysphagia, oropharyngeal phase; I12.9 Hypertensive chronic kidney disease with stage 1 through stage 4 chronic kidney disease, or unspecified chronic kidney disease; E11.22 Type 2 diabetes mellitus with diabetic chronic kidney disease; S51.012A Laceration without foreign body of left elbow, initial encounter; I25.2 Old myocardial infarction; Z79.4 Long term (current) use of insulin; Z68.34 Body mass index [BMI] 34.0-34.9, adult; X58.XXXA Exposure to other specified factors, initial encounter; Y93.89 Activity, other specified; Y92.89 Other specified places as the place of occurrence of the external cause; Y99.8 Other external cause status; Z82.49 Family history of ischemic heart disease and other diseases of the circulatory system; Z83.6 Family history of other diseases of the respiratory system; Z88.8 Allergy status to other drugs, medicaments and biological substances

== ENCOUNTER 2020-10-01 07:19 | Inpatient (IN) | payer OTHER, MEDICAID ==
[2020-10-01] VITALS (8 sets, daily range): BP systolic 118–141; BP diastolic 64–82
[~2020-10-01] VITALS: Wt 104.0 kg
[~2020-10-01 07:19] MED LIST changes: +LEVOFLOXACIN500 MG PO
[2020-10-01 07:50] LABS: MEAN CELL VOLUME 90.4 fl (80.0-94.0); MEAN CORPUSCULAR HGB 29.7 pg (27.0-31.0); MEAN CORPUSCULAR HGB CONC 32.9 g/dl (33.0-37.0); MEAN PLATELET VOLUME 11.4 fl (9.6-12.3); PLATELET COUNT AUTOMATED 347 10*3/uL (130-400); RED BLOOD COUNT 3.43 10*6/uL (4.50-5.90); RED CELL DISTRI WIDTH 19.4 % (0-14.5)
[2020-10-01 08:01] LABS: ACT PARTIAL THROMBO TIME 23.4 SECONDS (20.0-32.1); INTERNATIONAL NORM RATIO 1.1 (2.0-3.5)
[2020-10-01 08:06] LABS: ALBUMIN 1.9 gm/dl (3.1-4.5); CREATININE 2.21 mg/dL (0.70-1.30); POTASSIUM 2.8 mmol/L (3.5-5.1); TOTAL PROTEIN 6.4 gm/dL (6.4-8.2); TROPONIN I 0.02 ng/ml (<0.045)
[2020-10-01 08:07] LABS: OVALOCYTES FEW; PLATELET SUFFICIENCY NORMAL (NORMAL); TARGET CELLS FEW; TOTAL CELLS COUNTED 100 #CELLS
[2020-10-01 08:08] LABS: SCHISTOCYTES FEW
[2020-10-01 09:44] LABS: BILIRUBIN Negative (Negative); BLOOD Trace-Lysed (Negative); CLARITY Cloudy (Clear); COLOR Yellow (Yellow); GLUCOSE Negative (Negative); KETONE Trace (Negative); LEUKO ESTERASE 1+ (Negative); NITRITE Negative (Negative); UROBILINOGEN 0.2 E.U./dl (0.0-1.0)
[2020-10-01 09:55] LABS: RBC 16-20 rbc/hpf (0-2); WBC 16-20 wbc/hpf (0-5)
[2020-10-01 09:57] LABS: BACTERIA 2+; CALCIUM OXALATE CRYSTALS 1+; HYALINE CAST TNTC
[2020-10-02 06:42] LABS: CREATININE 1.95 mg/dL (0.70-1.30); POTASSIUM 3.7 mmol/L (3.5-5.1)
[2020-10-02 07:13] LABS: HEMATOCRIT 29.2 % (42.0-52.0); MEAN CORPUSCULAR HGB 29.9 pg (27.0-31.0); MEAN CORPUSCULAR HGB CONC 31.8 g/dl (33.0-37.0); MEAN PLATELET VOLUME 12.2 fl (9.6-12.3); PLATELET COUNT AUTOMATED 351 10*3/uL (130-400); RED BLOOD COUNT 3.11 10*6/uL (4.50-5.90); RED CELL DISTRI WIDTH 19.7 % (0-14.5); WHITE BLOOD COUNT 21.1 10*3/uL (4.8-10.8)
[2020-10-02 07:20] LABS: MEAN CELL VOLUME 93.9 fl (80.0-94.0)
[2020-10-02 07:55] LABS: BURR CELLS FEW; PLATELET SUFFICIENCY NORMAL (NORMAL); TOTAL CELLS COUNTED 100 #CELLS
[2020-10-02 07:56] LABS: SCHISTOCYTES FEW
[2020-10-02 12:00] VITALS: BP 109/54
[2020-10-02 13:43] LABS: CREATININE 2.07 mg/dL (0.70-1.30); POTASSIUM 3.4 mmol/L (3.5-5.1)
[2020-10-02 16:00] VITALS: BP 124/61
[2020-10-02 20:00] VITALS: BP 111/61
[2020-10-02 21:48] LABS: CREATININE 1.9 mg/dL (0.70-1.30); POTASSIUM 3.6 mmol/L (3.5-5.1)
[2020-10-03] VITALS: BP 107/56
[2020-10-03 06:53] LABS: CREATININE 1.84 mg/dL (0.70-1.30); POTASSIUM 5.1 mmol/L (3.5-5.1)
[2020-10-03 08:00] VITALS: BP 114/57
[2020-10-03 12:00] VITALS: BP 120/58
[2020-10-03 16:00] VITALS: BP 102/59
[2020-10-03 20:00] VITALS: BP 109/51
[2020-10-04] VITALS: BP 112/53
[2020-10-04 07:18] LABS: CREATININE 1.53 mg/dL (0.70-1.30)
[2020-10-04 07:22] LABS: POTASSIUM 3.8 mmol/L (3.5-5.1)
[2020-10-04 08:00] VITALS: BP 111/60
== END 2020-10-04 13:26 | DRG 871 ==
LOC: ED 07:19 → EDHOLD 10:09 → 5E 10:09
PROVIDERS: Emergency Medicine; Internal Medicine Nephrology; ADMIT Internal Medicine; ATTEND Internal Medicine
DX: A41.9 Sepsis, unspecified organism (principal); E43 Unspecified severe protein-calorie malnutrition; G93.41 Metabolic encephalopathy; N39.0 Urinary tract infection, site not specified; N17.9 Acute kidney failure, unspecified; E87.0 Hyperosmolality and hypernatremia; I69.351 Hemiplegia and hemiparesis following cerebral infarction affecting right dominant side; R65.20 Severe sepsis without septic shock; E86.0 Dehydration; E87.6 Hypokalemia; I25.10 Atherosclerotic heart disease of native coronary artery without angina pectoris; E78.2 Mixed hyperlipidemia; K21.9 Gastro-esophageal reflux disease without esophagitis; E11.22 Type 2 diabetes mellitus with diabetic chronic kidney disease; I12.9 Hypertensive chronic kidney disease with stage 1 through stage 4 chronic kidney disease, or unspecified chronic kidney disease; R33.9 Retention of urine, unspecified; L89.156 Pressure-induced deep tissue damage of sacral region; N18.30 Chronic kidney disease, stage 3 unspecified; F41.1 Generalized anxiety disorder; F32.9 Major depressive disorder, single episode, unspecified; E66.9 Obesity, unspecified; E87.8 Other disorders of electrolyte and fluid balance, not elsewhere classified; E11.65 Type 2 diabetes mellitus with hyperglycemia; Z66 Do not resuscitate; Z51.5 Encounter for palliative care; Z86.16 Personal history of COVID-19; Z88.8 Allergy status to other drugs, medicaments and biological substances; Z87.891 Personal history of nicotine dependence; Z83.6 Family history of other diseases of the respiratory system; Z82.49 Family history of ischemic heart disease and other diseases of the circulatory system; Z90.49 Acquired absence of other specified parts of digestive tract; I25.2 Old myocardial infarction; Z20.822 Contact with and (suspected) exposure to COVID-19